=== PATIENT | female | born 1950 ===

== ENCOUNTER 2024-05-23 13:34 | Outpatient (AMB) | payer MEDICARE, OTHER, SELFPAY ==
[2024-05-23 13:31] VITALS: BP 124/58; PULSE 64; O2SAT 98; BMI 25.9
--- NOTE | 2024-05-23 13:31 | A.OFFVIS_ITS ---
Vital Signs 05/23/24 13:31 Height 5 ft 1 in Weight 137 lb 2.04 oz BMI 25.9 BP 124/58 L Blood Pressure Location Lt brachial Position Sitting Pulse 64 Pulse Source Pulse Oximeter Pulse Oximetry (%) 98 Oxygen Delivery Method Room Air Intake Visit Reasons: osteoporosis/Prolia injection/CM APT Intake Note: Patient presents for osteoporosis and Prolia injection follow up. Allergies No Known Allergies Allergy (Verified 05/23/24 13:36) HPI HPI osteoporosis/Prolia injection/CM APT: Details: She continues to experience back pain. She did not have any benefit with PT. she reports that she would normally get Prolia in April or May. She co ntinues to take calcium vitamin-D supplement. No new fractures. Review of Systems Const All systems reviewed & are unremarkable except as noted in HPI and below Physical Exam Vital Signs: Last Vital Signs Pulse 64 05/23/24 13:31 BP 124/58 L 05/23/24 13:31 Pulse Ox 98 05/23/24 13:31 Oxygen Delivery Method Room Air 05/23/24 13:31 BMI result Body Mass Index 25.9 Const Other: General: Comfortable, responsive and alert. Skin: No lesions seen MSK: No synovitis. Kyphoscoliosis present. Ambulates without assistance. Slow ambulation. Assessment & Plan Assessment & Plan (1) Osteoporosis: Comment: On Prolia. Code(s): M81.0 - Age-related osteoporosis without current pathological fracture Category: Medical Qualifiers: Osteoporosis type: age-related Presence of current pathological fracture: unspecified Qualified Code(s): M81.0 - Age-related osteoporosis without current pathological fracture Plan: Labs for drug monitoring ordered We will process PA for Prolia and schedule patient would nurse visit at [facility] Rheumatology Department [facility] including bone densities. She will be due to repeat bone density next year Continue calcium and vitamin-D supplementation Return to clinic in 3 months (2) Other nursing home (current) drug therapy: Code(s): Z79.899 - Other nursing home (current) drug therapy Category: Medical Plan: See above Orders: Orders Vitamin D 25-OH Total Today M81.0 - Age-related osteoporosis without current pathological fracture Albumin Level Today M81.0 - Age-related osteoporosis without current pathological fracture Calcium Today M81.0 - Age-related osteoporosis without current pathological fracture Creatinine Today M81.0 - Age-related osteoporosis without current pathological fracture Coding Level of Care Code Est Pt Level 3 (21280) Complex EM visit Add On G2211 Diagnoses Age related osteoporosis, unspecified pathological fracture presence M81.0 Osteoporosis type: age-related Presence of current pathological fracture: unspecified Other terminal clerk (current) drug therapy Z79.899
== END 2024-05-23 14:26 | disposition home or self-care (01) ==
LOC: HO.RHES 13:34
PROVIDERS: Visit Provider Internal Medicine Rheumatology
DX: M81.0 Age-related osteoporosis without current pathological fracture (principal); Z79.899 Other long term (current) drug therapy
CPT/HCPCS: 99213; G2211

== ENCOUNTER → 2024-05-23 13:34 | Outpatient (BNVA) | payer MEDICARE, OTHER, SELFPAY | PROVIDERS: Visit Provider Internal Medicine Rheumatology | DX: M81.0 Age-related osteoporosis without current pathological fracture (principal); Z79.899 Other long term (current) drug therapy | CPT/HCPCS: 99212 ==

== ENCOUNTER 2024-05-24 09:08 | Outpatient (REF) | payer MEDICARE, SELFPAY ==
[2024-05-24 13:55] LABS: Albumin Level 4.1 g/dL (3.5-5.0); Calcium 9.4 mg/dL (8.4-10.2); Estimated Glomerular Filt Rate > 60
[2024-05-24 14:14] LABS: Vitamin D 25-OH Total 39.2 ng/mL (>30)
== END 2024-05-24 09:09 | disposition home or self-care (01) ==
LOC: HO.HMGCLDS 09:08
PROVIDERS: Visit Provider Internal Medicine Rheumatology
DX: M81.0 Age-related osteoporosis without current pathological fracture (principal)
CPT/HCPCS: 36415; 82040; 82306; 82310; 82565

== ENCOUNTER 2024-07-18 15:06 | Outpatient (REF) | payer OTHER, SELFPAY ==
--- OUTSIDE RECORDS SUMMARY | 2024-07-18 15:10 | XMS_ITS | Clinical Summary ---
Author Organization [facility] [address] [facility] Address [address] [place] [address] Phone Care Team Providers Care Management Consulting Name Role Phone Yogesh Mckeon MD Primary Care Provider [phone] Allergies Active Allergy Reactions Criticality Noted Date Comments Latex 07/07/2024 Medications Medication Sig Dispensed Refills Start Date End Date Status aspirin 81 mg chewable tablet aspirin 81 MG tablet Take 81 mg by mouth daily Active pen needle, diabetic (BD ULTRA-FINE ORIG PEN NEEDLE MISC) B-D ULTRAFINE III SHORT PEN 31G X 8 MM Misc 09/13/2017 Active cephalexin (KEFLEX) 500 mg capsule 10/08/2017 Active cetirizine (ZyrTEC) 10 mg capsule Take 1 Tab by mouth daily. Active cholecalciferol (VITAMIN D-3) 250 mcg (10,000 unit) capsule 12/12/2017 Active denosumab (Prolia) 60 mg/mL syringe syringe Inject 60 mg into the skin Once. 12/21/2017 Active ergocalciferol (VITAMIN D-2) 1,250 mcg (50,000 unit) capsule Take 50,000 Units by mouth once a week. Active esomeprazole (NexIUM) [address] capsule Take 40 mg by mouth every morning (before breakfast). Active fluconazole (DIFLUCAN) 150 mg tablet 10/08/2017 Active insulin glargine (LANTUS) 100 unit/mL injection Inject 10 Units into the skin daily. Active lisinopriL (PRINIVIL,ZESTRIL ) 2.5 mg tablet Take 2.5 mg by mouth daily. Active metFORMIN (GLUCOPHAGE) 1,000 mg tablet Take 1,000 mg by mouth 2 times daily (with meals). Active NIFEdipine (ADALAT CC) 30 mg 24 hr tablet Take 30 mg by mouth daily. Active pimecrolimus (ELIDEL) 1 % cream Apply topically 2 times daily. Active prednisoLONE acetate (PRED FORTE) 1 % ophthalmic suspension 11/17/2017 Active simvastatin (ZOCOR) 40 mg tablet Take 40 mg by mouth at bedtime. Active SITagliptin phosphate (Januvia) 100 mg tablet Take 100 mg by mouth daily. Active triamcinolone (KENALOG) 0.1 % cream Apply topically 2 times daily. Active budesonide DR (ENTOCORT EC) 3 mg 24 hr capsuleIndication s:Collagenous colitis Take 3 capsules (9 mg total) by mouth 1 (one) time each day in the morning. 90 each 11 07/07/2024 07/07/[address] (ENTOCORT EC) 3 mg 24 hr capsuleIndication s:Collagenous colitis Take 3 capsules (9 mg total) by mouth 1 (one) time each day in the morning. 90 each 07/07/2024 07/07/2024 Discontinued (Reorder) Encounters Date Type Department Care Team Description 07/07/2024 8:20 AM EST Office Visit Gastroenterology - [address] [phone] Lottie Martinez, [place] Collagenous colitis (Primary Dx) 06/29/2024 Telephone Gastroenterology - [address] [phone] Marlon Guzman MD from Last 3 Months Social History Tobacco Use Types Packs/Day Years Used Date Smoking Tobacco: Never Assessed Sex and Gender Information Value Date Recorded Sex Assigned at Not on file Gender Identity Not on file Sexual Orientation Not on file Job Start Date Occupation Industry Not on file Not on file Not on file Last Filed Vital Signs Vital Sign Reading Time Taken Comments Blood Pressure - - Pulse - - Temperature - - Respiratory Rate - - Oxygen Saturation - - Inhaled Oxygen Concentration - - Weight 61.4 kg (135 lb 6.4 oz) 07/07/2024 8:20 A M EST Height 154.9 cm (5' 1 ) 07/07/2024 8:20 AM EST Body Mass Index 25.58 07/07/2024 8:20 AM EST Plan of Treatment Upcoming Encounters Date Type Department Care Team ([facility] st Contact Info) Description 09/01/2024 9:20 AM EDT Office Visit Gastroenterology - 299 [address] [place] [phone] Lottie Martinez NP [address] [facility] [address] [place] [address] Health Maintenance Due Date Last Done Comments Breast Cancer Screening 1950 Diabetes: Annual GFR (Glomerular Filtration Rate) 1952 Diabetes: Annual Foot Exam 1962 Diabetes: Annual Retina Eye Exam 1962 RSV Immunization Patients 60+ Years Old (1 - Risk 60-74 years 1-dose series) 2012 COVID-19 Vaccine ( season) 2024 03/19/2022, 04/25/2021, 08/24/2020, Additional history exists Cholesterol Screening (Lipid Panel) 06/30/2024 Colorectal Cancer Screening: Colonoscopy 06/30/2024 Depression Screening 06/30/2024 Falls Risk Assessment 06/30/2024 Hepatitis C Screening 06/30/2024 Medicare Annual Wellness Visit 06/30/2024 Osteoporosis Screening (Bone Density Screening) 06/30/2024 Social Influencers of Health Screening 06/30/2024 Diabetes: Annual Urine Albumin-Creatinine Ratio (uACR) 07/08/2024 Diabetes: Blood Sugar Control Test (HGBA1C) 07/08/2024 Hypertension/CHF/CAD Annual BMP Blood Test 07/08/2024 DTaP,Tdap,and Td Vaccines (3 - Td or Tdap) 10/16/2024 10/16/2014, 05/11/2007 Pneumococcal Vaccine: 65+ Years Completed 07/20/2019, 03/28/2018, 03/17/2011 Zoster Vaccines Completed 07/18/2020, 03/25/2020 Influenza Vaccine Completed 04/11/2024, , 08/12/2022, Additional history exists HIB Vaccines Aged Out No longer eligi ble based on patient's age to complete this topic HPV Vaccines Aged Out No longer eligi ble based on patient's age to complete this topic Hepatitis A Vaccines Aged Out No long er eligible based on patient's age to complete this topic Hepatitis B Vaccines Aged Out No long er eligible based on patient's age to complete this topic IPV Vaccines Aged Out No longer eligi ble based on patient's age to complete this topic MMR Vaccines Aged Out No longer eligi ble based on patient's age to complete this topic Meningococcal ACWY Vaccine Aged Out N o longer eligible based on patient's age to complete this topic RSV Immunization Patients Under 20 months Aged Out No longer eligible based on patient's age to complete this topic Varicella Vaccines Aged Out No longer eligible based on patient's age to complete this topic Care Teams Management Consulting Relationship Specialty Start Date End Date Yogesh Mckeon MD [address] [place] [phone] PCP - General Internal Medicine 06/29/24
--- OUTSIDE RECORDS SUMMARY | 2024-07-18 15:10 | XMS_ITS | Continuity of Care Document ---
Author Organization [place] - [facility], JORGE [facility] Address [address] [place] [address] Care Team Providers Care Brazing Machine Tender Name Role Phone YANNA JACINTO Primary Care Provider Assessment Encounter Date Assessment Date Assessment LastModified by Organization Details LastModified Time 07/03/2024 07/03/2024 Assessment: Pt with limited right ankle ROM. Continues to have ttp and pain with gentle manual stretching. Abnormal gait pattern demonstrating a decrease in step length. Plan: Continue Poc as outlined [email or web address] Not available 07/02/2024 16:04:32 Plan of Treatment Reminders Order Date Submit Date Provider Last Modified By Organization Details Last Modified Time Details Appointments PT FOLLOW -UP 025 11:30AM Dio Pérez PTA Not available Not available Not available PT FOLLOW -UP 025 10:30AM Dio Pérez PTA Not available Not available Not available Lab None record ed. Referral None record ed. Procedures None record ed. Surgeries None record ed. Imaging None record ed. Medication Orders None record ed. Patient TargetsNo targets recorded. Patient InstructionsNo instructions recorded. Reason for Referral None Reported. Results Created Date Observation Date Name Description Value Unit Range Abnormal Flag Note LastModifiedBy Organization Detail LastModifiedTime 06/13/20 24 06/05/2024 XR, ankle , 3 or more view No observ ation record ed. BARCODE Not Available 2023 14:44:41 Result Notes None recorded. Problems Name Problem SNOMED Code Status Onset Date Resolution Date Notes Provider Name and Address Organization Details Recorded Time Sprain of right ankle [id number] Active 2023 Yobani Ashley PA-C [address], [place], [address] , [facility] 4 08:44:32 Problem Notes None recorded. Procedures Surgical History Date Name Laterality Status Provider Name and Address Organization Details Recorded Time 5 18944 Therapeutic Exercise (1:1) active Dio Pérez PTA [address], [place], [address], [facility] 07/18/2024 09:03:59 5 47156: Manual therapy active Dio Pérez PTA [address], [place], [address], [facility] 07/18/2024 09:03:59 5 82447 Therapeutic Exercise (1:1) completed Dio Pérez USABILITY ARCHITECT [address], [place], [address], [facility] 07/12/2024 18:59:19 5 22440: Manual therapy completed Dio Pérez PTA [address], [place], [address], [facility] 07/12/2024 18:59:19 5 72028 Therapeutic Exercise (1:1) completed Dio Pérez PTA [address], [place], [address], [facility] 07/11/2024 10:05:52 5 12484: Manual therapy completed Dio Pérez PTA [address], [place], [address], [facility] 07/10/2024 16:33:20 5 95571 Therapeutic Exercise (1:1) completed Dio Pérez PTA [address], [place], [address], [facility] 07/04/2024 10:09:04 5 71071: Manual therapy completed Dio Pérez USABILITY ARCHITECT [address], [place], [address], [facility] 07/04/2024 10:09:04 5 88682 Therapeutic Exercise (1:1) completed Jayden Villafuerte, PT [address], [place], [address], [facility] 07/02/2024 16:04:38 5 71794: Hot or Cold Pack completed Jayden Villafuerte, PT [address], [place], [address], [facility] 07/02/2024 16:04:38 5 33393: Manual therapy completed Jayden Villafuerte, PT [address], [place], [address], [facility] 07/03/2024 13:48:11 5 25850 Therapeutic Exercise (1:1) completed Dio Pérez, USABILITY ARCHITECT [address], [place], [address], [facility] 06/28/2024 10:47:30 5 33642: Hot or Cold Pack completed Dio Pérez, USABILITY ARCHITECT [address], [place], [address], [facility] 06/28/2024 10:47:30 5 17340: Manual therapy completed Dio Pérez, USABILITY ARCHITECT [address], [place], [address], [facility] 06/28/2024 10:47:30 5 84442 Therapeutic Exercise (1:1) completed Dio Pérez, USABILITY ARCHITECT [address], [place], [address], [facility] 06/23/2024 16:41:30 5 08847: Hot or Cold Pack completed Dio Pérez, USABILITY ARCHITECT [address], [place], [address], [facility] 06/23/2024 16:41:29 5 92341: Manual therapy completed Dio Pérez, USABILITY ARCHITECT [address], [place], [address], [facility] 06/26/2024 11:45:59 5 20007 Therapeutic Exercise (1:1) completed Jayden Villafuerte, PT [address], [place], [address], [facility] 06/21/2024 11:47:03 5 68276: Hot or Cold Pack completed Jayden Villafuerte, PT [address], [place], [address], [facility] 06/21/2024 11:51:27 5 56372 Therapeutic Exercise (1:1) completed Jayden Villafuerte, PT [address], [place], [address], [facility] 06/18/2024 18:52:14 5 08332: Low complexity PT Eval completed Jayden Villafuerte, PT [address], [place], [address], [facility] 06/18/2024 18:53:15 Imaging Results None recorded. Procedure Notes None recorded. Medical Equipment None Reported. Allergies No known drug allergies Medications Name Sig Start Date Stop Date Status Note LastModified by Organization Details LastModified Time cilostazol 50 mg tablet TAKE 1 TABLET BY MOUTH TWICE A DAY active Not Available Not Available No t Available meloxicam 15 mg tablet TAKE 1 TABLET BY MOUTH EVERY DAY NEEDED active Not Available Not Available No t Available nifedipine ER 30 mg tablet,exten ded release TAKE 1 TABLET BY MOUTH EVERY DAY active Not Available Not Available No t Available omeprazole 40 mg capsule,wes yed release TAKE 1 CAPSULE BY MOUTH EVERY DAY active Not Available Not Available No t Available simvastatin 40 mg tablet TAKE 1 TABLET BY MOUTH EVERYDAY AT BEDTIME active Not Available Not Available No t Available prednisolone acetate 1 % eye drops,suspen elias INSTILL 1 DROP INTO BOTH EYES EVERY DAY active Not Available Not Available No t Available magnesium oxide 400 mg (241.3 mg magnesium) tablet TAKE 1 TABLET BY MOUTH EVERY DAY active Not Available Not Available No t Available lorazepam 0.5 mg tablet TAKE 1 TABLET BY MOUTH DAILY AT BEDTIME NEEDED FOR ANXIETY FOR 90 DAYS active Not Available Not Available Not Available benzonatate 100 mg capsule TAKE 1 CAPSULE BY MOUTH 3 TIMES A DAY FOR 10 DAYS active Not Available Not Available Not Available metformin 1,000 mg tablet TAKE 1 TABLET BY MOUTH TWICE A DAY active Not Available Not Available No t Available gabapentin 100 mg capsule TAKE 2 CAPSULES BY MOUTH 2 TIMES A DAY active Not Available Not Available Not Available lorazepam 1 mg tablet TAKE 1/2 TABLET BY MOUTH ONCE DAILY AT BEDTIME NEEDED FOR ANXIETY active Not Available Not Available No t Available budesonide DR - ER 3 mg capsule,wes yed,extended release TAKE 3 CAPSULES (9 MG TOTAL) BY MOUTH EVERY DAY IN THE MORNING active Not Available Not Available No t Available albuterol sulfate HFA 90 mcg/actuatio n aerosol inhaler INHALE 1 TO 2 PUFFS BY MOUTH EVERY 4 TO 6 HOURS NEEDED active Not Available Not Available No t Available Vitamin D3 25 mcg (1,000 unit) tablet TAKE 1 TABLET DAILY active Not Available Not Available No t Available BD Ultra-Fine Mini Pen Needle 31 gauge x 3/16 USE ONE NEEDLE 4 TIMES PER DAY TO DOSE INSULIN, OR DIRECTED, DX=E11.9 active Not Available Not Available No t Available BD Ultra-Fine Short Pen Needle 31 gauge x 5/16 USE TO ADMINISTER INSULIN DAILY active Not Available Not Available No t Available ferrous gluconate 324 mg (38 mg iron) tablet TAKE 1 TABLET BY MOUTH TWICE A DAY active Not Available Not Available No t Available FreeStyle Lite Strips USE TO TEST BLOOD SUGAR TWICE DAILY DX: DM TYPE II (E11.9) active Not Available Not Available N ot Available Lantus Solostar U-100 Insulin 100 unit/mL (3 mL) subcutaneous pen INJECT 16 UNITS SUBCUTANEOU SLY EVERY DAY active Not Available Not Available No t Available Trelegy Ellipta 100 mcg-62.5 mcg-25 mcg powder for inhalation INHALE 1 PUFF EVERY DAY . RINSE MOUTH AFTER USE active Not Available Not Available No t Available FreeStyle Rahul 2 Sensor kit USE WITH FSL 2 READER TO MONITOR BLOOD GLUCOSE CHANGE EVERY 14 DAYS DX E11.9 30DAY SUPPLY active Not Available Not Available No t Available Vitals None Recorded Social History None recorded. Functional Status None recorded. Mental Status None recorded. Family History Nothing Reported. Medical History No medical history recorded. Gynecological HistoryNo gynecological history recorded. Obstetrics History GPAL:G 0 P 0 0 0 0 Past Encounters Encounter ID Performer Location Encounter Start Date Encounter Closed Date Diagnosis/Indication Diagnosis SNOMED-CT Code Diagnosis ICD10 Code Diagnosis Note [id number] Yobani Ashley PA-C [place] [address] [place] [address] 06/13/2024 08:29:17 06/29/2024 13:36:48 Sprain of right ankle [id number] S93.491A [id number] Jayden Villafuerte, PT [facility] [address] [place] [address] 06/19/2024 14:58:04 06/20/2024 08:13:04 Sprain of right ankle [id number] S93.401D [id number] Jayden Villafuerte, PT [facility] [address] [place] [address] 06/21/2024 10:13:55 06/21/2024 14:49:07 Sprain of right ankle [id number] S93.401D [id number] Jayden Villafuerte, PT [facility] [address] [place] [address] 06/26/2024 10:33:44 06/26/2024 11:46:28 Sprain of right ankle [id number] S93.401D [id number] Jayden Villafuerte, PT [facility] [address] [place] [address] 06/28/2024 10:45:09 06/28/2024 11:51:33 Sprain of right ankle [id number] S93.401D [id number] Jayden Villafuerte, PT [facility] [address] [place] [address] 07/03/2024 13:08:03 07/03/2024 16:20:58 Sprain of right ankle [id number] S93.401D Health Concerns Section Related Observation LastModified by Organization Detai ls LastModified Time None Recorded Concern Status LastModified by Organization Details LastModified Time None Recorded Payers Encounter Date Sequence Insurance Name Policy Number Policy Maza Covered Member ID Maza Member ID Guarantor Name 07/03/2024 1 [facility] - MEDICARE ADVANTAGE PLAN (MEDICARE REPLACEMENT HMO) [id number] Patrizia Smith [id number] Patrizia Smith Notes Date Note Type Note Provider Name and Address Organization Details Recorded Time 07/03/2024 text/html Patient states 7/10 pain right ankle Jayden Villafurete, PT [address] [facility] [address], [place], [address], [facility] 07/03/2024 15:05:36 OBGyn Episode No OBEpisode recorded.
--- OUTSIDE RECORDS SUMMARY | 2024-07-18 15:10 | XMS_ITS | Continuity of Care Document ---
Author Organization [place] - [facility], JORGE Salgado PT Address [address] [place] [address] Care Team Providers Care Ceramic Tile Mechanic Name Role Phone YANNA JACINTO Primary Care Provider Assessment Encounter Date Assessment Date Assessment LastModified by Organization Details LastModified Time 06/21/2024 06/21/2024 Assessment: pt unable to perform ther ex with ankle discomfort still has antalgic gait Plan: Continue to decrease pain, improve mobility, facilitate normalized gait mechanics, and strengthen/st abilize ankle joint for functional ADL's. [email or web address] Not available 06/21/2024 11:50:50 Plan of Treatment Reminders Order Date Submit [...] Details Recorded Time Sprain of right ankle [id number] Active 2023 Yobani Ashley PA-C [address], [place], [address] , [facility] 4 08:44:32 Problem Notes None recorded. Procedures Surgical History Date Name Laterality Status Provider Name and Address Organization Details Recorded Time 95525 Therapeutic Exercise (1:1) active Dio Pérez, PURCHASING BUYER [address], [place], [address], [facility] 07/18/2024 09:03:59 5 68069: Manual therapy active Dio Pérez PURCHASING BUYER [address], [place], [address], [facility] 07/18/2024 09:03:59 5 04974 Therapeutic Exercise (1:1) completed Dio Pérez PURCHASING BUYER [address], [place], [address], [facility] 07/12/2024 18:59:19 5 68928: Manual therapy completed Dio Pérez PURCHASING BUYER [address], [place], [address], [facility] 07/12/2024 18:59:19 5 88258 Therapeutic Exercise (1:1) completed Dio Pérez PURCHASING BUYER [address], [place], [address], [facility] 07/11/2024 10:05:52 5 06705: Manual therapy completed Dio Pérez PURCHASING BUYER [address], [place], [address], [facility] 07/10/2024 16:33:20 5 39285 Therapeutic Exercise (1:1) completed Dio Pérez PURCHASING BUYER [address], [place], [address], [facility] 07/04/2024 10:09:04 5 75890: Manual therapy completed Dio Pérez PURCHASING BUYER [address], [place], [address], [facility] 07/04/2024 10:09:04 5 70509 Therapeutic Exercise (1:1) completed Jayden Villafuerte, PT [address], [place], [address], [facility] 07/02/2024 16:04:38 5 27038: Hot or Cold Pack completed Jayden Villafuerte, PT [address], [place], [address], [facility] 07/02/2024 16:04:38 5 96990: Manual therapy completed Jayden Villafuerte, PT [address], [place], [address], [facility] 07/03/2024 13:48:11 5 73766 Therapeutic Exercise (1:1) completed Dio Pérez, PURCHASING BUYER [address], [place], [address], [facility] 06/28/2024 10:47:30 5 59645: Hot or Cold Pack completed Dio Pérez, PURCHASING BUYER [address], [place], [address], [facility] 06/28/2024 10:47:30 5 44648: Manual therapy completed Dio Pérez, PURCHASING BUYER [address], [place], [address], [facility] 06/28/2024 10:47:30 5 92734 Therapeutic Exercise (1:1) completed Dio Pérez, PURCHASING BUYER [address], [place], [address], [facility] 06/23/2024 16:41:30 5 31825: Hot or Cold Pack completed Dio Pérez, PURCHASING BUYER [address], [place], [address], [facility] 06/23/2024 16:41:29 5 23498: Manual therapy completed Dio Pérez, PURCHASING BUYER [address], [place], [address], [facility] 06/26/2024 11:45:59 5 00413 Therapeutic Exercise (1:1) completed Jayden Villafuerte, PT [address], [place], [address], [facility] 06/21/2024 11:47:03 5 78181: Hot or Cold Pack completed Jayden Villafuerte, PT [address], [place], [address], [facility] 06/21/2024 11:51:27 5 93222 Therapeutic Exercise (1:1) completed Jayden Villafuerte, PT [address], [place], [address], [facility] 06/18/2024 18:52:14 5 08216: Low complexity PT Eval completed Jayden Villafuerte, PT [address], [place], [address], [facility] 06/18/2024 18:53:15 Imaging Results [...] SNOMED-CT Code Diagnosis ICD10 Code Diagnosis Note [id number] Yobani Ashley PA-C [place] [address] [place] [address] 06/13/2024 08:29:17 06/29/2024 13:36:48 Sprain of right ankle [id number] S93.491A [id number] Jayden Villafuerte, PT [facility] - [facility] [address] [place] [address] 06/19/2024 14:58:04 06/20/2024 08:13:04 Sprain of right ankle 5916895306 [id number] S93.401D [id number] Jayden Villafuerte PT [facility] - [facility] [address] [place] [address] 06/21/2024 10:13:55 06/21/2024 14:49:07 Sprain of right ankle [id number] S93.401D Health Concerns Section Related Observation LastModified by Organization Detai ls LastModified Time None Recorded Concern Status LastModified by Organization Details LastModified Time None Recorded Payers Encounter Date Sequence Insurance Name Policy Number Policy Maza Covered Member ID Maza Member ID Guarantor Name 06/21/2024 1 [employer] - MEDICARE ADVANTAGE PLAN (MEDICARE REPLACEMENT HMO) [id number] Patrizia Smith [id number] Patrizia Smtih Notes Date Note Type Note Provider Name and Address Organization Details Recorded Time 06/21/2024 text/html Patient states 7/10 pain right ankle Jayden Villafuerte, PT [address], [place], [address], [facility] 06/21/2024 11:51:39 OBGyn Episode No OBEpisode recorded.
--- OUTSIDE RECORDS SUMMARY | 2024-07-18 15:10 | XMS_ITS | Encounter Summary ---
Author Organization [facility] Address [address] [place] [address] Care Team Providers Care Helmet Hat Sweatband Puncher Name Role Phone Yogesh Mckeon MD Primary Care Provider [phone] Encounter Details Date Type Department Care Team (Late st Contact Info) Description 06/29/2024 Telephone Gastroenterology - [address] [facility] [address] [place] [phone] Marlon Guzman MD [address] [facility] [address] [id number] Social History Tobacco Use Types Packs/Day Years Used Date Smoking Tobacco: Never Assessed Sex and Gender Information Value Date Recorded Sex Assigned at Not on file Gender Identity Not on file Sexual Orientation Not on file Job Start Date Occupation Industry Not on file Not on file Not on file documented as of this encounter Progress Notes * Christin Valverde - 06/29/2024 3:35 PM EST 08 PT, WOULD LIKE CALL BACK, STATES SHE'S HAD UNCONTROLLABLE DIARRHEA FOR OVER A MONTH documented in this encounter Plan of Treatment Upcoming Encounters Date Type Department Care Team (Late st Contact Info) Description 09/01/2024 9:20 AM EDT Office Visit Gastroenterology - [address] [place] [phone] Lottie Martinez, METAL HARDENER [address] [facility] [address] [place] [phone] documented as of this encounter Visit Diagnoses Not on filedocumented in this encounter Care Teams Helmet Hat Sweatband Puncher Relationship Specialty Start Date End Date Yogesh Mckeon MD [address] [place] [address] [place] [address] PCP - General Internal Medicine 06/29/24 documented as of this encounter
--- OUTSIDE RECORDS SUMMARY | 2024-07-18 15:11 | XMS_ITS | Continuity of Care Document ---
Author Organization [place] - [facility], JORGE Salgado PT Address [address] [place] [address] Care Team Providers Care Primary Counselor Name Role Phone YANNA JACINTO Primary Care Provider Assessment Encounter Date Assessment Date Assessment LastModified by Organization Details LastModified Time 07/11/2024 07/11/2024 Assessment: At this time the patient continues to have high level pain symptoms. Her ROM is limited in all planes. Functionally she is challenged with prolonged standing and walking. Pt encouraged to make a f/u with the DR secondary to lack of decreasing pain. Plan: Continue Poc as outlined [email or web address] Not available 07/11/2024 10:25:44 Plan of Treatment Reminders Order Date Submit [...] Details Recorded Time Sprain of right ankle [id number] Active 2023 Yobani Ashley PA-C [address], [place], [address], [facility] 4 08:44:32 Problem Notes None recorded. Procedures Surgical History Date Name Laterality Status Provider Name and Address Organization Details Recorded Time 5 49031 Therapeutic Exercise (1:1) active Dio Pérez PTA [address], [place], [address], [facility] 07/18/2024 09:03:59 5 53588: Manual therapy active Dio Pérez REHANGER [address], [place], [address], [facility] 07/18/2024 09:03:59 5 74667 Therapeutic Exercise (1:1) completed Dio Pérez, REHANGER [address], [place], [address], [facility] 07/12/2024 18:59:19 5 93535: Manual therapy completed Dio Pérez PTA [address], [place], [address], [facility] 07/12/2024 18:59:19 5 95353 Therapeutic Exercise (1:1) completed Dio Pérez PTA [address], [place], [address], [facility] 07/11/2024 10:05:52 5 50065: Manual therapy completed Dio Pérez PTA [address], [place], [address], [facility] 07/10/2024 16:33:20 5 95867 Therapeutic Exercise (1:1) completed Dio Pérez PTA [address], [place], [address], [facility] 07/04/2024 10:09:04 5 40186: Manual therapy completed Dio Pérez REHANGER [address], [place], [address], [facility] 07/04/2024 10:09:04 5 27254 Therapeutic Exercise (1:1) completed Jayden Villafuerte, PT [address], [place], [address], [facility] 07/02/2024 16:04:38 5 72780: Hot or Cold Pack completed Jayden Villafuerte, PT [address], [place], [address], [facility] 07/02/2024 16:04:38 5 53126: Manual therapy completed Jayden Villafuerte, PT [address], [place], [address], [facility] 07/03/2024 13:48:11 5 57586 Therapeutic Exercise (1:1) completed Dio Pérez, REHANGER [address], [place], [address], [facility] 06/28/2024 10:47:30 5 03150: Hot or Cold Pack completed Dio Pérez REHANGER [address], [place], [address], [facility] 06/28/2024 10:47:30 5 09387: Manual therapy completed Dio Pérez, REHANGER [address], [place], [address], [facility] 06/28/2024 10:47:30 5 95571 Therapeutic Exercise (1:1) completed Dio Pérez, REHANGER [address], [place], [address], [facility] 06/23/2024 16:41:30 5 60765: Hot or Cold Pack completed Dio Pérez, REHANGER [address], [place], [address], [facility] 06/23/2024 16:41:29 5 42649: Manual therapy completed Dio Pérez, REHANGER [address], [place], [address], [facility] 06/26/2024 11:45:59 5 46021 Therapeutic Exercise (1:1) completed Jayden Villafuerte, PT [address], [place], [address], [facility] 06/21/2024 11:47:03 5 23675: Hot or Cold Pack completed Jayden Villafuerte, PT [address], [place], [address], [facility] 06/21/2024 11:51:27 5 21672 Therapeutic Exercise (1:1) completed Jayden Villafuerte, PT [address], [place], [address], [facility] 06/18/2024 18:52:14 5 96890: Low complexity PT Eval completed Jayden Villafuerte, PT [address], [place], [address], [facility] 06/18/2024 18:53:15 Imaging Results None recorded. Procedure [...] SNOMED-CT Code Diagnosis ICD10 Code Diagnosis Note [id number] Yobani Ashley PA-C [place] [address] [place] [address] 06/13/2024 08:29:17 06/29/2024 13:36:48 Sprain of right ankle [id number] S93.491A [id number] Jayden Villafuerte, PT [facility] [address] [place] [address] 06/19/2024 14:58:04 06/20/2024 08:13:04 Sprain of right ankle [id number] [id number] S93.401D [id number] Jayden Villafuerte, PT [facility] [address] [place] [address] 06/21/2024 10:13:55 06/21/2024 14:49:07 Sprain of right ankle [id number] S93.401D [id number] Jayden Villafuerte, PT [facility] [address] [place] [address] 06/26/2024 10:33:44 06/26/2024 11:46:28 Sprain of right ankle [id number] S93.401D [id number] Jayden Villafuerte, PT [facility] [address] [place] [address] 06/28/2024 10:45:09 06/28/2024 11:51:33 Sprain of right ankle [id number] S93.401D [id number] Jayden Villafuerte, PT [facility] [address] [place] [address] 07/03/2024 13:08:03 07/03/2024 16:20:58 Sprain of right ankle [id number] [id number] S93.401D [id number] Jayden Villafuerte, PT [facility] [address] [place] [address] 07/05/2024 10:09:18 07/05/2024 11:37:15 Sprain of right ankle [id number] S93.401D [id number] Jayden Villafuerte, PT [facility] [address] [place] [address] 07/11/2024 08:46:43 07/11/2024 10:27:06 Sprain of right ankle 5812746292 [id number] S93.401D Health Concerns Section Related Observation LastModified by Organization Detai ls LastModified Time None Recorded Concern Status LastModified by Organization Details LastModified Time None Recorded Payers Encounter Date Sequence Insurance Name Policy Number Policy Maza Covered Member ID Maza Member ID Guarantor Name 07/11/2024 1 [facility] - MEDICARE ADVANTAGE PLAN (MEDICARE REPLACEMENT HMO) [id number] Patrizia Smith [id number] Patrizia Smith Notes Date Note Type Note Provider Name and Address Organization Details Recorded Time 07/11/2024 text/html Patient states 8/10 pain right ankle before therapy. Pt state she is having a hard time standing and walking. I cant drive anywhere, I have to have my drive. She reports she was given a brace but it hurts. Dio Pérez, REHANGER [address], [place], [address], [facility] 07/11/2024 10:26:57 OBGyn Episode No OBEpisode recorded.
--- OUTSIDE RECORDS SUMMARY | 2024-07-18 15:11 | XMS_ITS | Encounter Summary ---
Author Organization [facility] Address [address] [place] [address] Care Team Providers Care Supervisor Brake Repair Name Role Phone Yogesh Mckeon MD Primary Care Provider [phone] Encounter Details Date Type Department Care Team (Late st Contact Info) Description 07/07/2024 8:20 AM EST Office Visit Gastroenterology - [address] [place] [phone] Rita Martinez, SEYMOUR [address] [place] [address] Collagenous colitis (Primary Dx) Social History Tobacco Use Types Packs/Day Years Used Date Smoking Tobacco: Never Assessed Sex and Gender Information Value Date Recorded Sex Assigned at Not on file Gender Identity Not on file Sexual Orientation Not on file Job Start Date Occupation Industry Not on file Not on file Not on file documented as of this encounter Last Filed Vital Signs Vital Sign Reading Time Taken Comments Blood Pressure - - Pulse - - Temperature - - Respiratory Rate - - Oxygen Saturation - - Inhaled Oxygen Concentration - - Weight 61.4 kg (135 lb 6.4 oz) 07/07/2024 8:20 A M EST Height 154.9 cm (5' 1 ) 07/07/2024 8:20 AM EST Body Mass Index 25.58 07/07/2024 8:20 AM EST documented in this encounter Ordered Prescriptions Prescription Sig Dispensed Refills Start Date End Da te budesonide DR (ENTOCORT EC) 3 mg 24 hr capsuleIndications:Collag enous colitis Take 3 capsules (9 mg total) by mouth 1 (one) time each day in the morning. 90 each 11 07/07/2024 07/07/[address] (ENTOCORT EC) 3 mg 24 hr capsuleIndications:Collag enous colitis Take 3 capsules (9 mg total) by mouth 1 (one) time each day in the morning. 90 each 11 07/07/2024 07/07/2024 documented in this encounter Progress Notes * Rita Martinez NP - 07/07/2024 8:20 AM ESTAddended by: RITA MARTINEZ on: 07/07/2024 10:34 AM Modules accepted: Orders * Rita Martinez NP - 07/07/2024 8:20 AM EST CHIEF COMPLAINT: Diarrhea DATE OF LAST ENDOSCOPIC PROCEDURES: 11/2021 Colonoscopy 08/2020 EGD 09/2020 Capsule HPI: Patrizia Smith is a 73 y.o. old female who was originally referred to us by Yogesh Mckeon MD now presents to the gastroenterology department today for a follow up of collagenous colitis. Ms. Smith tells me she fell at home at the end of May and hurt her leg. She is getting better and fortunately did not break any bones, however since then she has started having diarrhea again. She describes 3-4 episodes of loose, non-bloody stools daily. Mild urgency. She denies abdominal pain or weight loss. She had no upper GI concerns. She denies recent antibiotic use, travel, or change in medication. Her symptoms are consistent with he collagenous colitis. Budesonide has worked well for her in the past and our plan is to restart it now and follow her closely. ROS: GENERAL: No malaise, significant weight loss or fever HEENT: No changes in hearing or vision or swallowing problems RESPIRATORY: No cough, wheezing or shortness of breath CARDIOVASCULAR: No chest pain, leg swelling or palpitations GI: See H&P The remainder of the review of systems is reviewed and negative. PAST MEDICAL HISTORY: IDDM HTN Hyperlipidemia Asthma Collagenous colitis GERD Osteoporosis OA Granuloma annulare PAST SURGICAL HISTORY: Anlke ORIF Corneal transplant SOCIAL HISTORY: No tobacco 1 wine with dinner FAMILY HISTORY: No family history on file. ACTIVE MEDICATIONS: Lantus 16 units QHS Humalog AC meals Metformin 1000mg BID Nifedipine 30mg QD Simvastatin 40mg QD Eye gtts ALLERGIES: Allergies Allergen Reactions Latex PHYSICAL EXAM: Visit Vitals Ht 1.549 m (61 ) Wt 61.4 kg (135 lb 6.4 oz) BMI 25.58 kg/m?? BSA 1.6 m?? APPEARANCE: Alert and in no acute distress EYES: PERRLA, conjunctiva and sclera normal. HEART: RRR with normal S1 and S2, no murmurs appreciated LUNG: clear to auscultation ABDOMEN: nontender without masses NEURO: Awake, alert and oriented x 3 Assessment & Plan Collagenous colitis Restart Budesonide 9mg QD OV 6 weeks No follow-ups on file. I would like to thank Yogesh Mckeon MD for the opportunity to partake in the patient's care. Board Certified Gastroenterology [facility] W [phone] [place] [phone] [email or web address] Rita Martinez NP documented in this encounter Plan of Treatment Upcoming Encounters Date Type Department Care Team (Late st Contact Info) Description 09/01/2024 9:20 AM EDT Office Visit Gastroenterology - [address] [address] Rita Martinez NP [address] [address] documented as of this encounter Visit Diagnoses Diagnosis Collagenous colitis- Primary Other and unspecified noninfectious gastroenteritis and colitis documented in this encounter Discontinued Medications Medication Sig Discontinue Reason Start Date End Da te budesonide DR (ENTOCORT EC) 3 mg 24 hr capsuleIndications:Mita agenous colitis Take 3 capsules (9 mg total) by mouth 1 (one) time each day in the morning. Reorder 07/07/2024 07/07/2024 documented as of this encounter Care Teams Supervisor Brake Repair Relationship Specialty Start Date End Date Yogesh Mckeon MD [address] [place] [address] PCP - General Internal Medicine 06/29/24 documented as of this encounter
--- OUTSIDE RECORDS SUMMARY | 2024-07-18 15:11 | XMS_ITS | Data Portability ---
Author Organization [facility] Pain Managem ent, PAIN OFFICE Address [address] [facility] [address] [place] [address] Care Team Providers Care Field Crop Farm Worker Name Role Phone YANNA JACNITO Primary Care Provider Assessment Encounter Date Assessment Date Assessment LastModified by Organization Details LastModified Time 01/24/2020 01/24/2020 Patrizia Smith is a 69 year old woman with neck pain radiating into upper back. She has myofascial pain syndrome in her upper back. Trigger points were palpated with reproduction of her pain in the trapezius muscle and paraspinal muscle in the cervical spine. Trial of trigger point injections were discussed with her. The risks and benefits of the procedure were discussed and she wishes to proceed and an appointment has been made for the same. [email or web address] Not available 01/26/2020 14:01:09 01/29/2020 01/29/2020 Patrizia Smith is a 69 year old woman with neck pain radiating into upper back. She has myofascial pain syndrome in her upper back. Trigger points were palpated with reproduction of her pain in the trapezius muscle and paraspinal muscle in the cervical spine. She is here for a trial of trigger point injection in right trapezius muscle under ultrasound guidance . The risks and benefits of the procedure were discussed and she wishes to proceed. She can follow up in two weeks. [email or web address] Not available 01/29/2020 11:31:58 02/14/2020 02/14/2020 Patrizia Smith is a 69 year old woman with neck pain radiating into upper back. She has myofascial pain syndrome in her upper back. Trigger points were palpated with reproduction of her pain in the trapezius muscle and paraspinal muscle in the cervical spine. She is here for a trigger point injection in left trapezius muscle under ultrasound guidance . The risks and benefits of the procedure were discussed and she wishes to proceed. She can follow up in two weeks. john Not available 02/14/2020 14:49:41 Plan of Treatment Reminders Order Date Submit Date Provider Last Modified By Organization Details Last Modified Time Details Appointments None record ed. Lab None record ed. Referral None record ed. Procedures None record ed. Surgeries None record ed. Imaging None record ed. Medication Orders None record ed. Patient TargetsNo targets recorded. Patient InstructionsNo instructions recorded. Reason for Referral None Reported. Problems Name Problem SNOMED Code Status Onset Date Resolution Date Notes Provider Name and Address Organization Details Recorded Time Muscle pain 32889782 Active Tomasz george MD [address] , [address], [place], [address], [place] [facility] 0 09:53:18 Degeneration of cervical intervertebral disc 66413302 Active Tomasz george MD [address] , [address], [place], [address], [place] [facility] 0 09:53:45 Spinal stenosis in cervical region 25416067 Active Tomasz george MD [address] , [address], [place], [address], [place] [facility] 0 09:54:00 Cervical spondylosis without myelopathy 544734540 Active Tomasz george MD [address] , [address], [place], [address], [place] [facility] 0 09:54:16 Problem Notes None recorded. Procedures Surgical History Date Name Laterality Status Provider Name and Address Organization Details Recorded Time 0 Trigger Point Injections under ultrasound guidance completed Tomasz Vivas MD [address] , [address], [place], [address], [place] [facility] 02/14/2020 14:49:01 0 Trigger Point Injections under ultrasound guidance completed Tomasz Vivas MD [address] , [address], [place], [address], [place] [facility] 01/29/2020 11:29:49 Imaging Results None recorded. Procedure Notes None recorded. Medical Equipment None Reported. Allergies Allergen ID Allergen Name Allergen Category Reaction Reaction Severity Criticality Documentation Date Start Date Code Code System Note Provider Name and Address Organization Details Recorded Time 32365 latex environme nt,medica tion Not available Not available Not available 01/24/2020 97621 91 RxNorm Avtar daniel, [place] [facility] 0 09:01:31 Medications Name Sig Start Date Stop Date Status Note LastModified by Organization Details LastModified Time nifedipine ER 30 mg tablet,exte nded release 24 hr active Not Available Not Available Not Available amoxicillin 500 mg capsule TAKE 2 TO START, THEN BY MOUTH TAKE 1 CAPSULE EVERY 8 HOURS UNTIL FINISHED active Not Available Not Available No t Available methocarbam ol 500 mg tablet TAKE 1 2 TABLETS BY MOUTH AT BED TIME 01/23 completed Not Available Not Available Not Available terconazole 0.4 % vaginal cream INSERT 1 APPLICATO RFUL EVERY DAY BY VAGINAL ROUTE FOR 7 DAYS. 01/23 completed Not Available Not Available Not Available azithromyci n 250 mg tablet TAKE 2 TABLETS BY MOUTH TODAY, THEN TAKE 1 TABLET DAILY FOR 4 DAYS 01/23 completed Not Available Not Available Not Available ibuprofen 800 mg tablet TAKE 1 TABLET BY MOUTH THREE TIMES A DAY active Not Available Not Available No t Available fluconazole 150 mg tablet TAKE 1 TABLET BY MOUTH EVERY DAY NEEDED 01/23 completed Not Available Not Available Not Available prednisone 5 mg tablet PLEASE SEE ATTACHED FOR DETAILED DIRECTION S 01/23 completed Not Available Not Available Not Available sulfamethox azole 800 mg-trimetho prim 160 mg tablet TAKE 1 TABLET BY MOUTH TWICE A DAY FOR 7 DAYS 01/23 completed Not Available Not Available Not Available simvastatin 40 mg tablet 01/23 completed Not Available Not Available Not Available terbinafine HCl 250 mg tablet TAKE 1 TABLET BY MOUTH EVERY DAY 01/23 completed Not Available Not Available Not Available prednisolon e acetate 1 % eye drops,suspe nsion INSTILL 1 DROP INTO BOTH EYES DAILY 01/23 completed Not Available Not Available Not Available lorazepam 0.5 mg tablet active Not Available Not Available Not Available imiquimod 5 % topical cream packet APPLY 4 TIMES A WEEK ON AFFECTED AREAS DIRECTED. 01/23 completed Not Available Not Available Not Available tacrolimus 0.1 % topical ointment active Not Available Not Available Not Available metformin 1,000 mg tablet active Not Available Not Available Not Available ropinirole 0.5 mg tablet 1 TABLET BY MOUTH DAILY AT BEDTIME,I NSTR 1 TO 3 HOURS BEFORE BEDTIME 01/23 completed Not Available Not Available Not Available clotrimazol e-betametha sone 1 %-0.05 % topical cream APPLY TO AFFECTED AREA AND SURROUNDI NG SKIN TWICE A DAY ( MORNING AND EVENING) FOR 2 WEEKS 01/23 completed Not Available Not Available Not Available codeine 10 mg-guaifene sin 100 mg/5 mL oral liquid TAKE 10 ML BY MOUTH EVERY 4 HOURS NEEDED FOR COUGH 01/23 completed Not Available Not Available Not Available gabapentin 100 mg capsule TAKE 1 CAPSULE BY MOUTH TWICE A DAY active Not Available Not Available No t Available estradiol 0.01% (0.1 mg/gram) vaginal cream INSERT 1 G EVERY DAY BY VAGINAL ROUTE DIRECTED FOR 14 DAYS. 01/23 completed Not Available Not Available Not Available levofloxaci n 750 mg tablet TAKE 1 TABLET BY MOUTH EVERY DAY FOR 7 DAYS 01/23 completed Not Available Not Available Not Available albuterol sulfate HFA 90 mcg/actuati on aerosol inhaler INHALE 2 PUFFS EVERY 4 HOURS NEEDED WHEEZING/ SHORTNESS OF BREATHE 01/28 completed Not Available Not Available Not Available celecoxib 100 mg capsule TAKE 1 CAPSULE BY MOUTH TWICE A DAY NEEDED FOR SEVERE PAIN active Not Available Not Available No t Available fluocinonid e 0.05 % topical cream APPLY TWICE A DAY TO RIGHT WRIST AND LEFT ANTICUBIT AL active Not Available Not Available No t Available lisinopril 2.5 mg tablet 01/23 completed Not Available Not Available Not Available doxycycline hyclate 100 mg tablet TAKE 1 TABLET BY MOUTH TWICE A DAY FOR 7 DAYS 01/23 completed Not Available Not Available Not Available naproxen 500 mg tablet TAKE 1 TABLET BY MOUTH 2 TIMES A DAY NEEDED FORPAIN DO NOT TAKE WITH IBUPROFEN active Not Available Not Available No t Available amoxicillin 875 mg-potassiu m clavulanate 125 mg tablet TAKE 1 TABLET BY MOUTH EVERY 12 HOURS FOR 7 DAYS 01/23 completed Not Available Not Available Not Available oxycodone 5 mg tablet TAKE 1 TABLET BY MOUTH 2 TIMES A DAY NEEDED FOE SEVERE PAIN FOR 7 DAYS 01/23 completed Not Available Not Available Not Available Asprin Ec Low Dose 81 mg tablet,wes yed release Take 1 tablet every day by oral route. active Not Available Not Available No t Available moxifloxaci n 0.5 % eye drops INSTILL 1 DROP 3 TIMES A DAY TO LEFT EYE X 3 DAYS 01/23 completed Not Available Not Available Not Available BD Ultra-Fine Short Pen Needle 31 gauge x 5/16 TO USE DAILY WITH LANTUS PEN DX E11.9 IDDM active Not Available Not Available No t Available Januvia 100 mg tablet active Not Available Not Available No t Available Prolia active Not Available Not Availa ble Not Available OneTouch Verio test strips active Not Available Not Available Not Available EpiCeram topical emulsion, extended release APPLY TWICE DAILY TO FACE, NECK, CHEST, ABDOMEN, HANDS, AND ARMS 01/23 completed Not Available Not Available Not Available Morenakerri OlivaZev U-100 Insulin 100 unit/mL (3 mL) subcutaneou s active Not Available Not Available Not Available Vitals Date Recorded Body weight Body mass index (BMI) Body height Heart rate Oxygen saturation Oxygen saturation in Arterial blood by Pulse oximetry Systolic blood pressure Diastolic blood pressure Provider Name and Address Organization Details Last Updated DateTime 0 67662.3 8 g 24.5 kg/m2 157.48 cm 66 /min 99 % 99 % 173 mm[Hg] 74 mm[Hg] Avtar george [place] [facility] 0 09:00:31 Date Recorded Body height Heart rate Oxygen saturation Oxygen saturation in Arterial blood by Pulse oximetry Systolic blood pressure Diastolic blood pressure Provider Name and Address Organization Details Last Updated DateTime 0 157.48 cm 84 /min 97 % 97 % 102 mm[Hg] 57 mm[Hg] Bernarda Alonso [place] [facility] 0 10:58:07 Date Recorded Body height Body mass index (BMI) Body weight Heart rate Oxygen saturation Oxygen saturation in Arterial blood by Pulse oximetry Systolic blood pressure Diastolic blood pressure Provider Name and Address Organization Details Last Updated DateTime 0 157.48 cm 24.5 kg/m2 67389.3 8 g 70 /min 98 % 98 % 125 mm[Hg] 68 mm[Hg] Avtar Aragon n [place] [facility] 0 13:58:56 Social History Question Answer Notes LastModified by Organizat ion Details LastModified Time Tobacco Smoking Status Current Every Day Smoker 4-5 ciggs daily Not Available [facility] 03/29/2020 03:16:11 Do You Or Have You Ever Used E-cigarettes Or Vape? Never Used Electronic Cigarettes [id number] Information not available 03/29/2020 Live Alone Or With Others? With Others Information not available 01/24/2020 Marital Status Information not available 01/24/2020 Sex: Unknown Functional Status None recorded. Mental Status None recorded. Family History Nothing Reported. Medical History Condition Response Coronary Artery Disease N Gout N Neuropathy/Neuralgia N Kidney Stones N Hyperthyroidism N Hypothyroidism N Depression N COPD N Hepatitis C N Migrane N Diabetes Y Anxiety Disorder Y Arthritis Y Seizures/Epilepsy N Hyperlipidemia N Cancer N Stroke N Asthma N HIV/AIDS N Headache N Bipolar Disorder N GERD/Reflux N High Cholesterol N Liver Disease N Pulmonary Embolism N Irritable Bowel Syndrome N Hypertension N Osteoporosis Y Kidney Disease N Gynecological HistoryNo gynecological history recorded. Obstetrics History GPAL:G 0 P 0 0 0 0 Past Encounters Encounter ID Performer Location Encounter Start Date Encounter Closed Date Diagnosis/Indication Diagnosis SNOMED-CT Code Diagnosis ICD10 Code Diagnosis Note [id number] Tomasz Vivas MD PAIN OFFICE [address] [place] [address] 01/24/2020 08:49:01 01/26/2020 14:08:18 Degeneration of cervical intervertebral disc 50733284 M50.30 Spinal juan nosis in cervical region 39170553 M48.02 Muscle pain 01277751 M79 .18 Cervical s pondylosis without myelopathy 277678540 M47.812 [id number] Tomasz Vivas MD PAIN OFFICE [address] [place] [address] 01/29/2020 10:51:05 01/29/2020 11:42:32 Degeneration of cervical intervertebral disc 56659419 M50.30 Spinal juan nosis in cervical region 85678996 M48.02 Muscle pain 43960581 M79 .18 Cervical s pondylosis without myelopathy 627723906 M47.812 [id number] Tomasz Vivas MD PAIN OFFICE [address] [place] [address] 02/14/2020 13:44:40 02/14/2020 16:02:22 Degeneration of cervical intervertebral disc 48944498 M50.30 Spinal juan nosis in cervical region 52462026 M48.02 Muscle pain 79239213 M79 .18 Cervical s pondylosis without myelopathy 376297784 M47.812 Health Concerns Section Related Observation LastModified by Organization Detai ls LastModified Time None Recorded Concern Status LastModified by Organization Details LastModified Time None Recorded Advance Directives Directive None Recorded Payers Encounter Date Sequence Insurance Name Policy Number Policy Maza Covered Member ID Maza Member ID Guarantor Name 01/24/2020 1 [facility] [id number] 1 Patrizia Luis [id number] Patrizia Luis 01/29/2020 1 [facility] [id number] 1 Patrizia Luis [id number] Patrizia Luis 02/14/2020 1 [facility] [id number] 1 Patrizia Luis [id number] Patrizia Luis Notes Date Note Type Note Provider Name and Address Organization Details Recorded Time 01/24/2020 text/html Patrizia Smith is a 69 year old Right handed woman with complaints of neck pain radiating into right shoulder region and into both trapezius muscle regions. The pain started spontaneously and is becoming greater for the past 3 months. She describes the pain as a burning, shooting pain . Current pain level is 5/10. Turning to the right aggravates her pain. Nothing relieves the pain. Pain interferes with sleep. She has no history of bladder or bowel incontinence.She has trialed physical therapy with traction and had minimal pain benefit. She had a course of oral steroids with minimal pain benefit. She is doing a home stretching exercise program with persistent pain.MRI Cervical spine shows Mild multilevel degenerative changes of the cervical spine Small punctate focus of T2 hyperintensity in the right aspect of the cord at C4 level. This may represent myelomalacia related to prior trauma or inflammation or infection. Tomasz Vivas MD [address] , [address], [place], [address], [facility] Pain Management 01/29/2020 09:10:33 01/29/2020 text/html She is here for a right trapezius muscle trigger point injection under ultrasound guidance Tomasz Vivas MD [address] [facility] , [address], [place], [address], [facility] Pain Management 01/30/2020 08:27:47 02/14/2020 text/html She is here for a left trapezius muscle trigger point injection under ultrasound guidance Tomasz Vivas MD [address] [facility] [facility] , [address], [place], [address], [facility] Pain Management 02/15/2020 09:59:53 OBGyn Episode No OBEpisode recorded.
[2024-07-18 15:57] LABS: Albumin Level 4.1 g/dL (3.5-5.0); Calcium 9.5 mg/dL (8.4-10.2); Estimated Glomerular Filt Rate > 60
[2024-07-23 14:18] LABS: Vitamin D 25-OH, D2 <4 ng/mL; Vitamin D 25-OH, D3 26 ng/mL; Vitamin D 25-OH, Total 26 ng/mL (30-100)
== END 2024-07-18 15:07 | disposition home or self-care (01) ==
LOC: HO.LAB 15:06
PROVIDERS: Visit Provider Internal Medicine Rheumatology
DX: M81.0 Age-related osteoporosis without current pathological fracture (principal); E55.9 Vitamin D deficiency, unspecified
CPT/HCPCS: 36415; 82040; 82306; 82310; 82565

== ENCOUNTER 2024-07-28 09:57 | Outpatient (AMB) | payer OTHER, SELFPAY ==
--- NOTE | 2024-07-28 10:19 | AM.OFFVISNUR ---
Intake Visit Reasons: Osteoporosis/prolia injection Allergies No Known Allergies Allergy (Verified 05/23/24 13:36) Office Meds Prolia 60 mg/mL subcutaneous syringe Performing Provider: Saad Mac MD Performing Location: [facility] Rheumatology Administered by: Criss Turcios RN on 07/28/24 10:19 Dose Route Admin Location Dispensed Lot Number Expiration Date NDC [employer] 60 mg subcut 1 mL [id number] 01/11/27 57757-684-30 AMGEN Comments: Patient arrived with spouse for Prolia injection. She was accompanied by her spouse. Prolia 60 mg/mL injection administered to patient in the right posterior upper arm without complication. Patient tolerated the procedure well. No site reaction noted. Patient reminded to monitor for s/s of site reaction, anaphylaxis, GI/ and musculoskeletal issues. Advised that she she experience any adverse reactions to seek immediate medical attention. Assessment & Plan Assessment & Plan Orders: Orders AMB Denosumab Injection Practice Supplied Today M81.0 - Age-related osteoporosis without current pathological fracture Medications: New Prolia (denosumab) 60 mg subcut ONCE 1 mL 0RF NS M81.0 - Age-related osteoporosis without current pathological fracture Coding
--- OUTSIDE RECORDS SUMMARY | 2024-07-28 10:34 | XMS_ITS | Encounter Summary ---
Author Organization [facility] Address [address] [place] [address] Care Team Providers Care Billing Administrator Name Role Phone Yogesh Mckeon MD Primary Care Provider [phone] Encounter Details Date Type Department Care Team (Late st Contact Info) Description 07/07/2024 8:20 AM EST Office Visit Gastroenterology - [address] [place] [address] Rita Martinez, MACHINE HEEL SEAT FITTER [address] [place] [address] Collagenous colitis (Primary Dx) Social History Tobacco Use Types Packs/Day Years Used Date Smoking Tobacco: Never Assessed Comments Unknown Sex and Gender Information Value Date Recorded Sex Assigned at Not on file Legal Sex Female 3:24 PM EST Gender Identity Not on file Sexual Orientation Not on file documented as of this [...] in this encounter Ordered Prescriptions Prescription Sig Dispense Quantity Refills Last Filled Start Date End Date budesonide DR (ENTOCORT EC) 3 mg 24 hr capsuleIndications :Collagenous colitis Take 3 capsules (9 mg total) by mouth 1 (one) time each day in the morning. 90 each 11 07/07/[address] (ENTOCORT EC) 3 mg 24 hr capsuleIndications :Collagenous colitis Take 3 capsules (9 mg total) by mouth 1 (one) time each day in the morning. 90 each 11 07/07/2024 documented in this encounter Progress Notes [...] for a follow up of collagenous colitis. tells me she fell at home at [...] denies recent antibiotic use, travel, or change inmedication. Her symptoms are consistent with he collagenous colitis. Budesonide has worked well forher in the past and our plan is [...] in the patient's care. Board Certified Gastroenterology [facility] Medical [facility] W [phone] [place] [address] [email or web address] Rita Martinez NP documented in this encounter Plan of Treatment Upcoming Encounters Date Type Department Care Team (Late st Contact Info) Description 09/01/2024 9:20 AM EDT Office Visit Gastroenterology - [address] [address] Rita Martinez NP [address] [address] documented as of this encounter Visit Diagnoses [...] documented as of this encounter Care Teams Billing Administrator Relationship Specialty Start Date End Date Yogesh Mckeon MD [address] [place] [address] PCP - General Internal Medicine 06/29/24 documented as of this encounter
--- OUTSIDE RECORDS SUMMARY | 2024-07-28 10:34 | XMS_ITS | Data Portability ---
Author Organization [facility] Pain Managem ent, PAIN OFFICE Address [address] [facility] [address] [place] [address] Care Team Providers Care Airborne [employer] Systems Name Role Phone YANNA JACINTO Primary Care [...] Address Organization Details Recorded Time Muscle pain 25746029 Active Tomasz george MD [address] , [address], [facility] [place], [address], [place] [facility] 0 09:53:18 Degeneration of cervical intervertebral disc 65281498 Active Tomasz george MD [address] , [address], [place], [address], [place] [facility] 0 09:53:45 Spinal stenosis in cervical region 61164730 Active Tomasz george MD [address] , [address], [place], [address], [place] [facility] 0 09:54:00 Cervical spondylosis without myelopathy 338307481 Active Tomasz george MD [address] , [address], [place], [address], [place] [facility] 0 09:54:16 Problem Notes None recorded. Procedures Surgical History Date Name Laterality Status Provider Name and Address Organization Details Recorded Time 0 Trigger Point Injections under ultrasound guidance completed Tomasz Vivas MD [address] , [address], [place], [address], [place] [facility] 02/14/2020 14:49:01 0 Trigger Point Injections under ultrasound guidance completed Tomasz Vivas MD [address] , [address], [place], [address], [place] [facility] 01/29/2020 11:29:49 Imaging Results None recorded. Procedure Notes None recorded. Medical Equipment None Reported. Allergies Allergen ID Allergen Name Allergen Category Reaction Reaction Severity Criticality Documentation Date Start Date Code Code System Note Provider Name and Address Organization Details Recorded Time 47638 latex environme nt,medica tion Not available Not available Not available 01/24/2020 59761 91 RxNorm Avtar daniel, [place] - [place] [...] Address Organization Details Last Updated DateTime 0 12094.3 8 g 24.5 kg/m2 157.48 cm 66 [...] Updated DateTime 0 157.48 cm 24.5 kg/m2 12953.3 8 g 70 /min 98 % 98 % 125 mm[Hg] 68 mm[Hg] Avtar Aragon n [place] [facility] 0 13:58:56 Social History Question Answer Notes LastModified by Organizat ion Details LastModified Time Tobacco Smoking Status Current Every Day Smoker 4-5 ciggs daily Not Available [facility] 03/29/2020 03:16:11 Do You Or Have You Ever Used E-cigarettes Or Vape? Never Used Electronic Cigarettes [id number] Information not available 03/29/2020 Live Alone Or [...] SNOMED-CT Code Diagnosis ICD10 Code Diagnosis Note [id number] Tomasz Vivas MD PAIN OFFICE [address] [place] [address] 01/24/2020 08:49:01 01/26/2020 14:08:18 Degeneration of cervical intervertebral disc 70780630 M50.30 Spinal juan nosis in cervical region 67708628 M48.02 Muscle pain 42400299 M79 .18 Cervical s pondylosis without myelopathy 539419129 M47.812 [id number] Tomasz Vivas MD PAIN OFFICE [address] [place] [address] 01/29/2020 10:51:05 01/29/2020 11:42:32 Degeneration of cervical intervertebral disc 88937285 M50.30 Spinal juan nosis in cervical region 70197146 M48.02 Muscle pain 84117690 M79 .18 Cervical s pondylosis without myelopathy 265111047 M47.812 [id number] Tomasz Vivas MD PAIN OFFICE [address] [place] [address] 02/14/2020 13:44:40 02/14/2020 16:02:22 Degeneration of cervical intervertebral disc 81931451 M50.30 Spinal juan nosis in cervical region 11207522 M48.02 Muscle pain 07674672 M79 .18 Cervical s pondylosis without myelopathy 221023471 M47.812 Health Concerns Section Related Observation LastModified by Organization Detai ls LastModified Time None Recorded Concern Status LastModified by Organization Details LastModified Time None Recorded Advance Directives Directive None Recorded Payers Encounter Date Sequence Insurance Name Policy Number Policy Maza Covered Member ID Maza Member ID Guarantor Name 01/24/2020 1 [facility] [id number] 1 Patrizia Luis [id number] Patrizia Luis 01/29/2020 1 [facility] [id number] 1 Patrizia Luis [id number] Patrizia Luis 02/14/2020 1 [facility] [id number] 1 Patrizia Luis [id number] Patrizia Luis Notes Date Note Type Note [...] inflammation or infection. Tomasz Vivas MD [address], [place], [address], [facility] Pain Management 01/29/2020 09:10:33 01/29/2020 text/html She is here for a right trapezius muscle trigger point injection under ultrasound guidance Tomasz Vivas MD [address] , [address], [place], [address], [facility] Pain Management 01/30/2020 08:27:47 02/14/2020 text/html She is here for a left trapezius muscle trigger point injection under ultrasound guidance Tomasz Vivas MD [address] [facility] , [address], [place], [address], [facility] Pain Management 02/15/2020 09:59:53 OBGyn Episode No OBEpisode recorded.
--- OUTSIDE RECORDS SUMMARY | 2024-07-28 10:34 | XMS_ITS | Clinical Summary ---
Author Organization [facility] 299 [facility] Address [address] [place] [address] Phone Care Team Providers Care Materials Handler Name Role Phone Yogesh Mckeon MD Primary Care Provider [phone] Allergies Active Allergy Reactions Criticality Noted Date Comments Latex 07/07/2024 Medications aspirin 81 mg chewable tablet aspirin 81 MG tablet Take 81 mg by mouth daily Active pen needle, diabetic (BD ULTRA-FINE ORIG PEN NEEDLE MISC) B-D ULTRAFINE III SHORT PEN 31G X 8 MM Misc 8 Active cephalexin (KEFLEX) 500 mg capsule 8 Active cetirizine (ZyrTEC) 10 mg capsule Take 1 Tab by mouth daily. Active cholecalciferol (VITAMIN D-3) 250 mcg (10,000 unit) capsule 8 Active denosumab (Prolia) 60 mg/mL syringe syringe Inject 60 mg into the skin Once. 8 Active ergocalciferol (VITAMIN D-2) 1,250 mcg (50,000 unit) capsule Take 50,000 Units by mouth once a week. Active esomeprazole (NexIUM) [address] capsule Take 40 mg by mouth every morning (before breakfast). Active fluconazole (DIFLUCAN) 150 mg tablet 8 Active insulin glargine (LANTUS) 100 unit/mL injection Inject 10 Units into the skin daily. Active lisinopriL (PRINIVIL,ZESTR IL) 2.5 mg tablet Take 2.5 mg by mouth daily. Active metFORMIN (GLUCOPHAGE) 1,000 mg tablet Take 1,000 mg by mouth 2 times daily (with meals). Active NIFEdipine (ADALAT CC) 30 mg 24 hr tablet Take 30 mg by mouth daily. Active pimecrolimus (ELIDEL) 1 % cream Apply topically 2 times daily. Active prednisoLONE acetate (PRED FORTE) 1 % ophthalmic suspension 8 Active simvastatin (ZOCOR) 40 mg tablet Take 40 mg by mouth at bedtime. Active SITagliptin phosphate (Januvia) 100 mg tablet Take 100 mg by mouth daily. Active triamcinolone (KENALOG) 0.1 % cream Apply topically 2 times daily. Active budesonide DR (ENTOCORT EC) 3 mg 24 hr capsuleIndicati ons:Collagenous colitis Take 3 capsules (9 mg total) by mouth 1 (one) time each day in the morning. 90 each 11 5 07/07/[address] (ENTOCORT EC) 3 mg 24 hr capsuleIndicati ons:Collagenous colitis Take 3 capsules (9 mg total) by mouth 1 (one) time each day in the morning. 90 each 11 5 07/07/19 25 Discontinu ed(Reorder ) Encounters Date Type Department Care Team Description 07/07/2024 8:20 AM EST Office Visit Gastroenterology - [address] [phone] Lottie Martinez NP Collagenous colitis (Primary Dx) 06/29/2024 Telephone Gastroenterology - [address] [phone] Marlon Guzman MD from Last 3 Months Social History Tobacco Use Types Packs/Day Years Used Date Smoking Tobacco: Never Assessed Comments Unknown Sex and Gender Information Value Date Recorded Sex Assigned at Not on file Legal Sex Female 3:24 PM EST Gender Identity Not on file Sexual Orientation Not on file Last Filed Vital Signs [...] Upcoming Encounters Date Type Department Care Team ([facility] st Contact Info) Description 09/01/2024 9:20 AM EDT Office Visit Gastroenterology - 299 [address] 299 [facility] [address] [place] [phone] Lottie Martinez NP [address] [facility] [address] [place] [address] Health Maintenance Due Date Last Done Comments Breast Cancer Screening 1952 Diabetes: Annual GFR (Glomerular Filtration Rate) 1952 Diabetes: Annual Foot Exam 1962 Diabetes: Annual Retina Eye Exam 1962 RSV Immunization Patients 60+ Years Old (1 - Risk 60-74 years 1-dose series) 2012 COVID-19 Vaccine () 02/13/2024 03/19/2022, 04/25/2021, 08/24/2020, Additional history exists Cholesterol [...] or Tdap) 10/16/2024 10/16/2014, 05/11/2007 Pneumococcal Vaccine: 50+ Years Completed 07/20/2019, 03/28/2018, 03/17/2011 Zoster Vaccines [...] patient's age to complete this topic Meningococcal B Vacine Aged Out No lo nger eligible based on patient's age to complete this topic RSV Immunization Patients Under 20 months Aged Out No longer eligible based on patient's age to complete this topic Varicella Vaccines Aged Out No longer eligible based on patient's age to complete this topic Insurance [employer] Care Teams Materials Handler Relationship Specialty Start Date End Date Yogesh Mckeon MD [address] [place] [address] PCP - General Internal Medicine 06/29/24
--- OUTSIDE RECORDS SUMMARY | 2024-07-28 10:34 | XMS_ITS | Encounter Summary ---
Author Organization [facility] Address [address] [place] [address] Care Team Providers Care Road Engineer Name Role Phone Yogesh Mckeon MD Primary Care Provider [phone] Encounter Details Date Type Department Care Team (Late st Contact Info) Description 06/29/2024 Telephone Gastroenterology - 299 [address] [facility] [address] [place] [phone] Marlon Guzman MD [address] [facility] [address] [address] Social History Tobacco Use Types Packs/Day Years [...] - [address] [place] [phone] Lottie Martinez, [place] [address] [place] [phone] documented as of this encounter Visit Diagnoses Not on filedocumented in this encounter Care Teams Road Engineer Relationship Specialty Start Date End Date Yogesh Mckeon MD [address] [address] PCP - General Internal Medicine 06/29/24 documented as of this encounter
== END 2024-07-28 10:28 | disposition home or self-care (01) ==
PROVIDERS: Visit Provider Internal Medicine Rheumatology
DX: M81.0 Age-related osteoporosis without current pathological fracture (principal)

== ENCOUNTER → 2024-07-28 09:57 | Outpatient (BNVA) | payer OTHER, SELFPAY | PROVIDERS: Visit Provider Internal Medicine Rheumatology | DX: M81.0 Age-related osteoporosis without current pathological fracture (principal) | CPT/HCPCS: 96372; J0897 ==

== ENCOUNTER 2024-08-23 09:30 | Outpatient (AMB) | payer OTHER, SELFPAY ==
[2024-08-23 09:50] VITALS: BP 110/62; PULSE 69; O2SAT 97; BMI 26.4
--- NOTE | 2024-08-23 09:50 | MHC.OFFVIS ---
Vital Signs 08/23/24 09:50 Height 4 ft 11.65 in Weight 133 lb 6.075 oz BMI 26.4 BP 110/62 Pulse 69 Pulse Oximetry (%) 97 Oxygen Delivery Method Room Air Intake Visit Reasons: ts Intake Note: Patient presents for osteoporosis Accompanied by: Spouse Allergies No Known Allergies Allergy (Verified 08/23/24 09:50) Physical Exam Vital Signs: Last Vital Signs Pulse 69 08/23/24 09:50 BP 110/62 08/23/24 09:50 Pulse Ox 97 08/23/24 09:50 Oxygen Delivery Method Room Air 08/23/24 09:50 BMI result Body Mass Index 26.4 Assessment & Plan Assessment & Plan (1) Osteoporosis: Comment: On Prolia. She received Prolia 07/2024. Recent labs reveal vitamin-D deficiency. She is on ergocalciferol 08876 IU weekly for 12 week course. Rheumatology history: Diagnosed with osteoporosis with fragility fracture 2007 right ankle (fell down 2 steps on stairs, low-impact fracture). Treated with Prolia for 10 years by PCP per history but unable to locate bone density. Prolia was continued 06/2018. She had a bone density 08/2022, which revealed lowest T-score -2.3 left femoral neck,-2.1 spine, total hip -1.2. 05/20/2020, she had lowest T-score spine-2.2, left femoral neck-2.1 and left total hip-1.1. The last bone density does report worsening of T-score in left femoral neck but improvement in total hip and spine. Bone density 04/2018 lowest T-score -2.4 spine L1-L4,-1.5 left femoral neck,-1.4 total left hip. Code(s): M81.0 - Age-related osteoporosis without current pathological fracture Category: Medical Qualifiers: Osteoporosis type: age-related Presence of current pathological fracture: unspecified Qualified Code(s): M81.0 - Age-related osteoporosis without current pathological fracture Plan: She will receive Prolia subcutaneous injection in office every 6 months. Next injection due in January She will have follow-up and labs 1 week prior to nurse visit for Prolia in January She will continue ergocalciferol 50940 IU weekly for another 2 months. Then she will start calcium and vitamin-D supplement that I prescribed today She is due to have bone density to to check response of Prolia [facility] Return to clinic in January (2) Other senior care (current) drug therapy: Code(s): Z79.899 - Other senior care (current) drug therapy Category: Medical Plan: See above (3) Vitamin D deficiency: Code(s): E55.9 - Vitamin D deficiency, unspecified Category: Medical Plan: On supplement Orders: Orders XR DEXA appendicular skeleton Today M81.0 - Age-related osteoporosis without current pathological fracture XR DEXA axial skeleton Today M81.0 - Age-related osteoporosis without current pathological fracture Medications: New calcium carbonate-vitamin D3 600 mg-25 mcg (1,000 unit) Start after completing ergocalciferol course. 1 cap PO BID 90 days 180 caps 3RF Coding Level of Care Code Est Pt Level 4 (94898) Complex EM visit Add On G2211 Diagnoses Age related osteoporosis, unspecified pathological fracture presence M81.0 Osteoporosis type: age-related Presence of current pathological fracture: unspecified Other intermission coordinator (current) drug therapy Z79.899 Vitamin D deficiency E55.9 Time Spent (min) 25
--- OUTSIDE RECORDS SUMMARY | 2024-08-23 10:24 | XMS_ITS | Clinical Summary ---
Author Organization [facility] 299 [facility] Address [address] [place] [address] Phone Care Team Providers Care Advertising Sales Consultant Name Role Phone Yogesh Mckeon MD Primary Care Provider [phone] Allergies Active Allergy Reactions Criticality Noted Date [...] 90 each 11 5 07/07/19 26 Active Encounters Date Type Department Care Team Description 07/07/2024 8:20 AM EST Office Visit Gastroenterology - [address] [phone] Lottie Martinez, SEYM[place] Collagenous colitis (Primary Dx) 06/29/2024 Telephone Gastroenterology - [address] [place] [phone] Marlon Guzman MD from Last 3 Months [...] Upcoming Encounters Date Type Department Care Team ([facility] Contact Info) Description 09/01/2024 9:20 AM EDT Office Visit Gastroenterology - [address] [phone] Lottie Martinez, [place] [address] [place] [address] Health Maintenance Due Date Last Done Comments [...] [employer] Care Teams Advertising Sales Consultant Relationship Specialty Start Date End Date Yogesh Mckeon MD [address] [place] [address] PCP - General Internal Medicine 06/29/24
--- OUTSIDE RECORDS SUMMARY | 2024-08-23 10:24 | XMS_ITS | Data Portability ---
Author Organization [facility] Pain Managem ent, PAIN OFFICE Address [address] [facility] [address] [place] [address] Care Team Providers Care Veterinary Toxicologist Name Role Phone YANNA JACINTO Primary Care [...] Address Organization Details Recorded Time Muscle pain 26170000 Active Tomasz george MD [address] , [address], [place], [address], [place] [facility] 0 09:53:18 Degeneration of cervical intervertebral disc 07473270 Active Tomasz george MD [address] , [address], [place], [address], [place] [facility] 0 09:53:45 Spinal stenosis in cervical region 05568288 Active Tomasz george MD [address] , [address], [place], [address], [place] [facility] 0 09:54:00 Cervical spondylosis without myelopathy 210534261 Active Tomasz george MD [address] , [address], [place], [address], [place] [facility] 0 09:54:16 Problem Notes None recorded. Procedures Surgical History Date Name Laterality Status Provider Name and Address Organization Details Recorded Time 0 Trigger Point Injections under ultrasound guidance completed Tomasz Vivas MD [address] , [address], [place], [address], [place] [facility] 02/14/2020 14:49:01 0 Trigger Point Injections under ultrasound guidance completed Tomasz Vivas MD [address] , [address], [place], [address], [place] [facility] 01/29/2020 11:29:49 Imaging Results None recorded. Procedure Notes None recorded. Medical Equipment None Reported. Allergies Allergen ID Allergen Name Allergen Category Reaction Reaction Severity Criticality Documentation Date Start Date Code Code System Note Provider Name and Address Organization Details Recorded Time 31254 latex environme nt,medica tion Not available Not available Not available 01/24/2020 61891 91 RxNorm Avtar daniel, [place] - [place] [...] completed Not Available Not Available Not Available Narinderaglkerri OlivaZev U-100 Insulin 100 unit/mL (3 mL) subcutaneou s active Not Available Not Available Not Available Vitals Date Recorded Body weight Body mass index (BMI) Body height Heart rate Oxygen saturation Oxygen saturation in Arterial blood by Pulse oximetry Pain severity - 0-10 verbal numeric rating [Score] - Reported Systolic blood pressure Diastolic blood pressure Provider Name and Address Organization Details Last Updated DateTime 0 38529.3 8 g 24.5 kg/m2 157.48 cm 66 /min 99 % 99 % 6 173 mm[Hg] 74 mm[Hg] Avtar george [place] [...] Updated DateTime 0 157.48 cm 24.5 kg/m2 17184.3 8 g 70 /min 98 % 98 % 125 mm[Hg] 68 mm[Hg] Avtar george [place] [facility] 0 13:58:56 Social History Question Answer Notes LastModified by Organizat ion Details LastModified Time Tobacco Smoking Status Current Every Day Smoker 4-5 ciggs daily Not Available [facility] 03/29/2020 03:16:11 Do You Or Have You Ever Used E-cigarettes Or Vape? Never Used Electronic Cigarettes [id number] Information not available 03/29/2020 Live Alone Or With Others? With Others [email or web address] Information not available 01/24/2020 Marital Status [email or web address] Information not available 01/24/2020 Sex: Unknown Functional [...] SNOMED-CT Code Diagnosis ICD10 Code Diagnosis Note [id number] Tomasz Vivas MD PAIN OFFICE [address] [place] [address] 01/24/2020 08:49:01 01/26/2020 14:08:18 Degeneration of cervical intervertebral disc 42285631 M50.30 Spinal juan nosis in cervical region 45765878 M48.02 Muscle pain 40478566 M79 .18 Cervical s pondylosis without myelopathy 057502750 M47.812 51733 Tomasz Vivas MD PAIN OFFICE [address] [place] [address] 01/29/2020 10:51:05 01/29/2020 11:42:32 Degeneration of cervical intervertebral disc 54400492 M50.30 Spinal juan nosis in cervical region 01728632 M48.02 Muscle pain 36719360 M79 .18 Cervical s pondylosis without myelopathy 227517225 M47.812 79684 Tomasz Vivas MD PAIN OFFICE [address] [employer] [place] [address] 02/14/2020 13:44:40 02/14/2020 16:02:22 Degeneration of cervical intervertebral disc 00438045 M50.30 Spinal juan nosis in cervical region 38194741 M48.02 Muscle pain 81214288 M79 .18 Cervical s pondylosis without myelopathy 237268850 M47.812 Health Concerns Section Related Observation LastModified by Organization Detai ls LastModified Time None Recorded Concern Status LastModified by Organization Details LastModified Time None Recorded Advance Directives Directive None Recorded Payers Encounter Date Sequence Insurance Name Policy Number Policy Maza Covered Member ID Maza Member ID Guarantor Name 01/24/[address] [facility] [id number] 1 Patrizia Luis [id number] Patrizia Luis 01/29/[address] [facility] [id number] 1 Patrizia Luis [id number] Patrizia Luis 02/14/[address] [facility] [id number] 1 Patrizia Luis [id number] Patrizia Luis Notes Date Note Type Note [...] inflammation or infection. Tomasz Vivas MD [address] , [address], [place], [address], [facility] 01/29/2020 09:10:33 01/29/2020 text/html She is here for a right trapezius muscle trigger point injection under ultrasound guidance Tomasz Vivas MD [address] [facility] , [address], [place], [address], [facility] 01/30/2020 08:27:47 02/14/2020 text/html She is here for a left trapezius muscle trigger point injection under ultrasound guidance Tomasz Vivas MD [address] [facility] , [address], [place], [address], [facility] 02/15/2020 09:59:53 OBGyn Episode No OBEpisode recorded.
== END 2024-08-23 10:38 | disposition home or self-care (01) ==
LOC: HO.RHES 09:31
PROVIDERS: Visit Provider Internal Medicine Rheumatology
DX: M81.0 Age-related osteoporosis without current pathological fracture (principal); Z79.899 Other long term (current) drug therapy; E55.9 Vitamin D deficiency, unspecified
CPT/HCPCS: 99214

== ENCOUNTER 2024-09-15 10:24 | Outpatient (REF) | payer MEDICARE, SELFPAY ==
--- NOTE | ~2024-09-15 | MM_ITS ---
EXAMINATION: DXA BONE DENSITY AXIAL HISTORY: Estrogen deficiency TECHNIQUE: [employer] Dual energy absorptiometry (DEXA) of the lumbar spine, total left hip, and femoral neck was performed. COMPARISON: There are no prior studies for comparison. FINDINGS: The bone mineral density of the lumbar spine is 0.946 with a T-score of -2.0, and a Z-score of -0.1. This is indicative of osteopenia. The bone mineral density of the left total hip is 0.770 with a T-score of -1.9, and a Z-score of -0.2. This is indicative of osteopenia. The bone mineral density of the left femoral neck is 0.743 with a T-score of -2.1, and a Z-score of -0.2. This is indicative of osteopenia. FRACTURE RISK: The FRAX index suggests a risk of major osteoporotic fracture of 12.8%, and of hip fracture 4.3%. MM/XR DEXA axial skeleton IMPRESSION: Based on bone mineral density, and according to World Health Organization (WHO) criteria, the diagnosis is consistent with osteopenia. All bone density values are in grams per centimeter squared (g/cm2). Statistically, 68% of repeat scans fall within 1 SD (+/- 0.010 g/cm2 for AP spine L1-L4) and 1 SD (+/- 0.012 g/cm2 for femur total) FRAX is a trademark of the [employer]'s [place] for Metabolic Bone Disease, a World Health Organization (WHO) Collaborating Center. Electronically signed by: Justin Pa MD 09/15/2024 11:21 AM EDT
--- OUTSIDE RECORDS SUMMARY | 2024-09-15 11:49 | XMS_ITS | Clinical Summary ---
Author Organization [facility] 299 [facility] Address [address] [place] [address] Phone Care Team Providers Care Machine Operators Name Role Phone Yogesh Mckeon MD Primary Care Provider [phone] Allergies Active Allergy Reactions Criticality Noted Date Comments Latex 07/07/2024 Medications aspirin 81 mg chewable tablet aspirin 81 MG tablet Take 81 mg by mouth daily Active pen needle, diabetic (BD ULTRA-FINE ORIG PEN NEEDLE MIS) B-D ULTRAFINE III SHORT PEN 31G X 8 [facility] Active cephalexin (KEFLEX) 500 mg capsule [...] Encounters Date Type Department Care Team Description 09/01/2024 9:20 AM EDT Office Visit Gastroenterology - [address] [place] [phone] Lottie Martinez NP Collagenous colitis (Primary Dx) 07/07/2024 8:20 AM EST Office Visit Gastroenterology - [address] [place] [phone] Lottie Martinez NP Collagenous colitis (Primary Dx) 06/29/2024 Telephone Gastroenterology - [address] [place] [phone] Marlon Guzman MD from Last 3 Months [...] - Inhaled Oxygen Concentration - - Weight 60.3 kg (133 lb) 09/01/2024 9:13 AM EDT Height 149.9 cm (4' 11 ) 09/01/2024 9:13 AM EDT Body Mass Index 26.86 09/01/2024 9:13 AM EDT Plan of Treatment Health Maintenance Due Date Last Done Comments Breast Cancer Screening 1952 Diabetes: Annual GFR (Glomerular Filtration Rate) 1952 Diabetes: Annual Foot Exam 1962 Diabetes: Annual Retina Eye Exam 1962 RSV Immunization Adult Patients (1 - Risk 60-74 years 1-dose series) 2012 COVID-19 Vaccine ( season) 2024 03/19/2022, 04/25/2021, 08/24/2020, Additional history exists Cholesterol Screening (Lipid Panel) 06/30/2024 Depression Screening 06/30/2024 Falls Risk Assessment 06/30/2024 Hepatitis C Screening 06/30/2024 Medicare Annual Wellness Visit 06/30/2024 Osteoporosis Screening (Bone Density Screening) 06/30/2024 Social Influencers of Health Screening 06/30/2024 Diabetes: Annual Urine Albumin-Creatinine Ratio (uACR) 07/08/2024 Diabetes: Blood Sugar Control Test (HGBA1C) 07/08/2024 Hypertension/CHF/CAD Annual BMP Blood Test 07/08/2024 DTaP,Tdap,and Td Vaccines (3 - Td or Tdap) 10/16/2024 10/16/2014, 05/11/2007 Colorectal Cancer Screening: Colonoscopy 09/01/2034 09/01/2024 Pneumococcal Vaccine: 50+ Years Completed 07/20/2019, 03/28/2018, [...] on patient's age to complete this topic Procedures Procedure Name Priority Date/Time Associated Diagnosis Comments EXTERNAL COLONOSCOPY REPORT Routine 09/01/2024 11:33 AM EDT from Last 3 Months Results * External Colonoscopy Report (09/01/2024 11:33 AM EDT) Anatomical Region Laterality Modality Endoscopy us Historical Provider GI~PROCEDURE ORDERABLES F inal Result from Last 3 Months Insurance [employer] Care Teams Machine Operators Relationship Specialty Start Date End Date Yogesh Mckeon MD [address] [place] [address] PCP - General Internal Medicine 06/29/24
--- OUTSIDE RECORDS SUMMARY | 2024-09-15 11:49 | XMS_ITS | Data Portability ---
Author Organization [facility] Pain Managem ent, PAIN OFFICE Address [address] [facility] [address] [place] [address] Care Team Providers Care Full Stack Engineer Name Role Phone YANNA JACINTO Primary Care [...] Address Organization Details Recorded Time Muscle pain 47352428 Active Tomasz george MD [address] , [address], [facility] [place], [address], [place] [facility] 0 09:53:18 Degeneration of cervical intervertebral disc 35561741 Active Tomasz george MD [address] , [address], [place], [address], [place] [facility] 0 09:53:45 Spinal stenosis in cervical region 94842495 Active Tomasz george MD [address] , [address], [place], [address], [place] [facility] 0 09:54:00 Cervical spondylosis without myelopathy 213188498 Active Tomasz george MD [address] , [address], [place], [address], [place] [facility] 0 09:54:16 Problem Notes None recorded. Procedures Surgical History Date Name Laterality Status Provider Name and Address Organization Details Recorded Time 0 Trigger Point Injections under ultrasound guidance completed Tomasz Vivas MD [address] , [address], [place], [address], [place] [facility] 02/14/2020 14:49:01 0 Trigger Point Injections under ultrasound guidance completed Tomasz Vivas MD [address] , [address], [place], [address], [place] [facility] 01/29/2020 11:29:49 Imaging Results None recorded. Procedure Notes None recorded. Medical Equipment None Reported. Allergies Allergen ID Allergen Name Allergen Category Reaction Reaction Severity Criticality Documentation Date Start Date Code Code System Note Provider Name and Address Organization Details Recorded Time 11544 latex environme nt,medica tion Not available Not available Not available 01/24/2020 45945 91 RxNorm Avtar daniel, [place] - [place] [...] Address Organization Details Last Updated DateTime 0 44210.3 8 g 24.5 kg/m2 157.48 cm 66 [...] Updated DateTime 0 157.48 cm 24.5 kg/m2 73786.3 8 g 70 /min 98 % 98 % 125 mm[Hg] 68 mm[Hg] Avtar george [place] [facility] 0 13:58:56 Social History Question Answer Notes LastModified by Organizat ion Details LastModified Time Tobacco Smoking Status Current Every Day Smoker 4-5 ciggs daily Not Available [facility] 03/29/2020 03:16:11 Do You Or Have You Ever Used E-cigarettes Or Vape? Never Used Electronic Cigarettes [id number] Information not available 03/29/2020 Live Alone Or [...] SNOMED-CT Code Diagnosis ICD10 Code Diagnosis Note 11866 Tomasz Vivas MD PAIN OFFICE [address] [place] [address] 01/24/2020 08:49:01 01/26/2020 14:08:18 Degeneration of cervical intervertebral disc 04293583 M50.30 Spinal juan nosis in cervical region 42871395 M48.02 Muscle pain 76041673 M79 .18 Cervical s pondylosis without myelopathy 332462107 M47.812 33338 Tomasz Vivas MD PAIN OFFICE [address] [place] [address] 01/29/2020 10:51:05 01/29/2020 11:42:32 Degeneration of cervical intervertebral disc 49878418 M50.30 Spinal juan nosis in cervical region 12839842 M48.02 Muscle pain 71561001 M79 .18 Cervical s pondylosis without myelopathy 519392973 M47.812 60227 Tomasz Vivas MD PAIN OFFICE [address] [place] [address] 02/14/2020 13:44:40 02/14/2020 16:02:22 Degeneration of cervical intervertebral disc 50868560 M50.30 Spinal juan nosis in cervical region 78364145 M48.02 Muscle pain 34351842 M79 .18 Cervical s pondylosis without myelopathy 998393603 M47.812 Health Concerns Section Related Observation LastModified by Organization Detai ls LastModified Time None Recorded Concern Status LastModified by Organization Details LastModified Time None Recorded Advance Directives Directive None Recorded Payers Encounter Date Sequence Insurance Name Policy Number Policy Maza Covered Member ID Maza Member ID Guarantor Name 01/24/2020 1 [facility] [id number] 1 Patrizia Luis [id number] Patrizia Luis 01/29/2020 1 [facility] [id number] 1 Patrizia Luis [id number] Patrizia Luis 02/14/2020 1 [facility] [id number] 1 Patrizia Luis [id number] Patrizia Luis Notes Date Note Type Note [...] inflammation or infection. Tomasz Vivas MD [address] , [address], [place], [address], [facility] 01/29/2020 09:10:33 01/29/2020 text/html She is here for a right trapezius muscle trigger point injection under ultrasound guidance Tomasz Vivas MD [address] [facility] , [address], [place], [address], [facility] 01/30/2020 08:27:47 02/14/2020 text/html She is here for a left trapezius muscle trigger point injection under ultrasound guidance Toamsz Vivas MD [address] [facility] , [address], [place], [address], [facility] 02/15/2020 09:59:53 OBGyn Episode No OBEpisode recorded.
== END 2024-09-15 10:25 | disposition home or self-care (01) ==
LOC: HO.MAMMO 10:24
PROVIDERS: Visit Provider Internal Medicine Rheumatology
DX: M81.0 Age-related osteoporosis without current pathological fracture (principal)
CPT/HCPCS: 77080

== ENCOUNTER → 2024-09-15 11:30 | Outpatient (BNV) | payer MEDICARE, SELFPAY | PROVIDERS: Visit Provider Radiology Diagnostic Radiology | DX: E28.39 Other primary ovarian failure (principal) | CPT/HCPCS: 77080 ==

== ENCOUNTER 2024-11-28 10:01 | Outpatient (AMB) | payer MEDICARE, SELFPAY ==
[2024-11-28 10:25] VITALS: BP 100/70; PULSE 68; O2SAT 98; BMI 25.9
--- NOTE | 2024-11-28 10:25 | A.OFFVIS_ITS ---
Vital Signs 11/28/24 10:25 Height 4 ft 11 in Weight 128 lb BMI 25.9 BP 100/70 Blood Pressure Location Rt brachial Position Sitting Pulse 68 Pulse Source Pulse Oximeter Pulse Oximetry (%) 98 Oxygen Delivery Method Room Air Intake Visit Reasons: 3 Months Intake Note: Patient presents for osteoporosis Accompanied by: Self / Same As Patient Allergies No Known Allergies Allergy (Verified 11/28/24 10:25) HPI HPI 3 Months: Details: She feels well. She completed vitamin-D supplement. Physical Exam Vital Signs: Last Vital Signs Pulse 68 11/28/24 10:25 BP 100/70 11/28/24 10:25 Pulse Ox 98 11/28/24 10:25 Oxygen Delivery Method Room Air 11/28/24 10:25 BMI result Body Mass Index 25.9 Const Other: General: Comfortable, responsive and alert. Skin: No lesions seen MSK: No synovitis. Kyphoscoliosis present. Ambulates without assistance. Slow ambulation. Assessment & Plan Assessment & Plan (1) Osteoporosis: Comment: On Prolia. She received Prolia 07/2024. She completed 12 week course of ergo calciferol 65067 IU weekly due to vitamin-D deficiency. Bone densities reviewed with patient and her . She recently had a bone density September 2024, which reveals slight improvement in lumbar spine bone density compared to bone density from 2022 (-2.0 from -2.1 in 2022) with improvement in T-score of left femoral neck (-2.1 from -2.3) and increase of T- score in left total hip (-1.9 compared to -1.2 in 2022). However, when compared to bone density from 2018 she has had decrease in T-scores of left femoral hip and left total hip. T-score of lumbar spine has increased compared to bone de nsity from 2018. She has had at least 16 years of treatment on Prolia (10 years prior to [facility]-present). She has had treatment failure on Prolia due to worsening of T-score in left femoral hip and left total hip since 2018. We discussed next best step in treatment with Romosuzumab. There is evidence to support the use of romosuzumab in providing improvement in bone density in individuals that have been previously treated with long-term Prolia. Optimal timing of romosuzumab is necessary to prevent rebound bone turnover at 3 months after next Prolia. Patient agrees with plan. PMID: 13040282, PMID: 54463310, PMID: 24913665, PMID: 77271575 Rheumatology history: Diagnosed with osteoporosis with fragility fracture 2007 right ankle (fell down 2 steps on stairs, low-impact fracture) and 2023 (fell down 1 step of stair). Treated with Prolia for 10 years by PCP per history but unable to locate bone density. Prolia was continued 06/2018. She had a bone density 08/2022, which revealed lowest T-score -2.3 left femoral neck,-2.1 spine, total hip -1.2. 05/20/2020, she had lowest T-score spine-2.2, left femoral neck-2.1 and left total hip-1.1. Bone density 04/2018 lowest T- score -2.4 spine L1-L4,-1.5 left femoral neck,-1.4 total left hip. Code(s): M81.0 - Age-related osteoporosis without current pathological fracture Category: Medical Qualifiers: Osteoporosis type: age-related Presence of current pathological fracture: unspecified Qualified Code(s): M81.0 - Age-related osteoporosis without current pathological fracture Plan: She will receive Prolia subcutaneous injection in office every 6 months with nurse visit. Next Prolia due in January. Plan to start Romosuzumab 3 months after next Prolia (April) for optimal timing/best practice. She will have follow-up and labs 1 week prior to nurse visit for Prolia in January Vitamin-D level checked today. Continue calcium and vitamin-D supplement b.i.d. Plan to repeat bone density after 1 year of treatment with Romosuzumab to evaluate benefit on treatment Return to clinic in 3 months (2) Other automation technologist (current) drug therapy: Code(s): Z79.899 - Other skilled nursing (current) drug therapy Category: Medical Plan: See above (3) Vitamin D deficiency: Code(s): E55.9 - Vitamin D deficiency, unspecified Category: Medical Plan: On supplement Checking vitamin-D level today Return to clinic in three-months Orders: Orders Vitamin D 25-OH Total 3 Months E55.9 - Vitamin D deficiency, unspecified, M81.0 - Age-related osteoporosis without current pathological fracture Coding Level of Care Code Est Pt Level 4 (57254) Complex EM visit Add On G2211 Diagnoses Age related osteoporosis, unspecified pathological fracture presence M81.0 Osteoporosis type: age-related Presence of current pathological fracture: unspecified Other automation technologist (current) drug therapy Z79.899 Vitamin D deficiency E55.9
--- OUTSIDE RECORDS SUMMARY | 2024-11-28 11:22 | XMS_ITS | Data Portability ---
Author Organization [facility] Pain Managem ent, PAIN OFFICE Address [address] [facility] [address] [place] [address] Care Team Providers Care Search Marketing Specialist Name Role Phone YNANA JACINTO Primary Care Provider Assessment Encounter Date [...] Address Organization Details Recorded Time Muscle pain 94377910 Active Tomasz george MD [address] , [address], [place], [address], [place] [facility] 0 09:53:18 Degeneration of cervical intervertebral disc 17578880 Active Tomasz george MD [address] , [address], [place], [address], [place] [facility] 0 09:53:45 Spinal stenosis in cervical region 88627278 Active Tomasz george MD [address] , [address], [place], [address], [place] [facility] 0 09:54:00 Cervical spondylosis without myelopathy 019642013 Active Tomasz george MD [address] , [address], [place], [address], [place] [facility] 0 09:54:16 Problem Notes None recorded. Procedures Surgical History Date Name Laterality Status Provider Name and Address Organization Details Recorded Time 0 Trigger Point Injections under ultrasound guidance completed Tomasz Vivas MD [address] , [address], [place], [address], [place] [facility] 02/14/2020 14:49:01 0 Trigger Point Injections under ultrasound guidance completed Tomasz Vivas MD [address] , [address], [place], [address], [place] [facility] 01/29/2020 11:29:49 Imaging Results None recorded. Procedure Notes None recorded. Medical Equipment None Reported. Allergies Allergen ID Allergen Name Allergen Category Reaction Reaction Severity Criticality Documentation Date Start Date Code Code System Note Provider Name and Address Organization Details Recorded Time 06287 latex environme nt,medica tion Not available Not available Not available 01/24/2020 51928 91 RxNorm Avtar daniel, [place] - [place] [...] Address Organization Details Last Updated DateTime 0 68123.3 8 g 24.5 kg/m2 157.48 cm 66 [...] Updated DateTime 0 157.48 cm 24.5 kg/m2 50665.3 8 g 70 /min 98 % 98 % 125 mm[Hg] 68 mm[Hg] Avtar Aragon n [place] [facility] 0 13:58:56 Social History Question Answer Notes LastModified by Organizat ion Details LastModified Time Tobacco Smoking Status Current Every Day Smoker 4-5 ciggs daily Not Available [facility] 03/29/2020 03:16:11 Live Alone Or With Others? With Others Information not available 01/24/2020 Marital Status Information not available 01/24/2020 Sex: Unknown Functional Status Question Answer Note LastModified by Organizat ion Details LastModified Time What is your occupation? retired [id number] Information not available 03/29/2020 Do you or have you ever used e-cigarettes or vape? Never used electronic cigarettes [id number] Information not available 03/29/2020 Mental Status None recorded. Family History Nothing [...] SNOMED-CT Code Diagnosis ICD10 Code Diagnosis Note [id number] Tomasz Vivas MD PAIN OFFICE [address] [place] [address] 01/24/2020 08:49:01 01/26/2020 14:08:18 Degeneration of cervical intervertebral disc 05693150 M50.30 Spinal juan nosis in cervical region 62060104 M48.02 Muscle pain 67985140 M79 .18 Cervical s pondylosis without myelopathy 608229440 M47.812 [id number] Tomasz Vivas MD PAIN OFFICE [address] [place] [address] 01/29/2020 10:51:05 01/29/2020 11:42:32 Degeneration of cervical intervertebral disc 99980476 M50.30 Spinal juan nosis in cervical region 20685419 M48.02 Muscle pain 19409017 M79 .18 Cervical s pondylosis without myelopathy 329171358 M47.812 [id number] Tomasz Vivas MD PAIN OFFICE [address] [facility] [address] [place] [address] 02/14/2020 13:44:40 02/14/2020 16:02:22 Degeneration of cervical intervertebral disc 12465006 M50.30 Spinal juan nosis in cervical region 72766791 M48.02 Muscle pain 40370400 M79 .18 Cervical s pondylosis without myelopathy 205937119 M47.812 Health Concerns Section Related Observation LastModified by Organization Detai ls LastModified Time None Recorded Concern Status LastModified by Organization Details LastModified Time None Recorded Advance Directives Directive None Recorded Payers Insurance Date Sequence Insurance Name Policy Number Policy Maza Covered Member ID Maza Member ID Guarantor Name 03/07/2021 1 [facility] [id number] 1 Patrizia Smith [id number] Patrizia Smith Notes Date Note Type Note [...] inflammation or infection. Tomasz Vivas MD [address] [place] [facility] , [address], [place], [address], [facility] 01/29/2020 09:10:33 01/29/2020 text/html She is here for a right trapezius muscle trigger point injection under ultrasound guidance Tomasz Vivas MD [address] [facility] , [address], [place], [address], [facility] 01/30/2020 08:27:47 02/14/2020 text/html She is here for a left trapezius muscle trigger point injection under ultrasound guidance Tomasz Vivas MD [address] [facility] [facility] , [address], [place], [address], [facility] Pain Management 02/15/2020 09:59:53 OBGyn Episode No OBEpisode recorded.
== END 2024-11-28 11:09 | disposition home or self-care (01) ==
LOC: HO.RHES 10:03
PROVIDERS: Visit Provider Internal Medicine Rheumatology
DX: M81.0 Age-related osteoporosis without current pathological fracture (principal); Z79.899 Other long term (current) drug therapy; E55.9 Vitamin D deficiency, unspecified
CPT/HCPCS: 99214; G2211

== ENCOUNTER → 2024-11-28 10:01 | Outpatient (BNVA) | payer MEDICARE, SELFPAY | PROVIDERS: Visit Provider Internal Medicine Rheumatology | DX: M81.0 Age-related osteoporosis without current pathological fracture (principal); E55.9 Vitamin D deficiency, unspecified; Z79.899 Other long term (current) drug therapy | CPT/HCPCS: 99212 ==

== ENCOUNTER 2025-01-15 10:37 | Outpatient (REF) | payer MEDICARE, SELFPAY ==
--- OUTSIDE RECORDS SUMMARY | 2025-01-15 11:25 | XMS_ITS | Clinical Summary ---
Author Organization [facility] Address [address] [place] [address] Phone Care Team Providers Care Shrub Grower Name Role Phone Yogesh Mckeon MD Primary Care Provider + Allergies No known active allergies Active Problems Problem Noted Date Diagnosed Date Granuloma annulare 09/18/2014 Overview (05/21/2015): Granuloma annulare; neck Dermatitis 09/18/2014 Overview (05/21/2015): Dermatitis; fingers Family History Medical History Relation Comments Melanoma Unspecified Malignant melano ma Relation Status Comments Unspecified Social History Tobacco Use Types Packs/Day Years Used Date Smoking Tobacco: Every Day Comments Unknown Sex and Gender Information Value Date Recorded Sex Assigned at Not on file Legal Sex Female 3:45 PM EST Gender Identity Not on file Sexual Orientation Not on file Plan of Treatment Not on file Medical Devices Not on file Insurance [place] OUT OF STATE PPO [place]UE [place] OUT OF STATE PPO [place] OUT OF STATE PPO [place] OUT OF STATE PPO [place]UE [place] OUT OF STATE PPO [place] OUT OF STATE PPO BLUE [place] OUT OF STATE PPO [place] OUT OF STATE PPO Care Teams Shrub Grower Relationship Specialty Start Date End Date Yogesh Mckeon MD [address] [place] [id number] PCP - General 12/12/13 Additional Source Comments The information contained in this document represents components of the legal health record. It is not the complete legal health record.[facility]
--- OUTSIDE RECORDS SUMMARY | 2025-01-15 11:25 | XMS_ITS | Clinical Summary ---
Author Organization [facility] [address] [facility] Address [address] [place] [address] Phone Care Team Providers Care Crawler Dragline Operator Name Role Phone Yogesh Mckeon MD Primary Care Provider [phone] Allergies Active Allergy Reactions Criticality Noted Date Comments Latex 07/07/2024 Medications aspirin 81 mg chewable tablet aspirin 81 MG tablet Take 81 mg by mouth daily Active pen needle, diabetic (BD ULTRA-FINE ORIG PEN NEEDLE MIS) B-D ULTRAFINE III SHORT PEN 31G X [facility] Active cephalexin (KEFLEX) 500 mg capsule [...] 90 each 11 5 07/07/19 26 Active Social History Tobacco Use Types Packs/Day Years [...] 2024 03/19/2022, 04/25/2021, 08/24/2020, Additional history exists Depression Screening 06/14/2024 Cholesterol Screening (Lipid Panel) 06/30/2024 Falls Risk Assessment 06/30/2024 Hepatitis C Screening 06/30/2024 Medicare Annual Wellness Visit 06/30/2024 Osteoporosis Screening (Bone Density Screening) 06/30/2024 Social Influencers of Health Screening 06/30/2024 Diabetes: Annual Urine Albumin-Creatinine Ratio (uACR) 07/08/2024 Diabetes: Blood Sugar Control Test (HGBA1C) 07/08/2024 Hypertension/CHF/CAD Annual BMP Blood Test 07/08/2024 DTaP,Tdap,and Td Vaccines (3 - Td or Tdap) 10/16/2024 10/16/2014, 05/11/2007 Influenza Vaccine (#1) 2025 , 05/29/2023, 08/12/2022, Additional history exists Colorectal Cancer Screening: Colonoscopy 09/01/2034 09/01/2024 Pneumococcal Vaccine: 50+ Years Completed 07/20/2019, 03/28/2018, 03/17/2011 Zoster Vaccines Completed 07/18/2020, 03/25/2020 HIB Vaccines Aged Out No longer eligi [...] age to complete this topic Meningococcal B Vaccine Aged Out No l onger eligible based on patient's age to complete this topic RSV Immunization Patients Under 20 months Aged Out No longer eligible based on patient's age to complete this topic Varicella Vaccines Aged Out No longer eligible based on patient's age to complete this topic Procedures Procedure Name Priority Date/Time Associated Diagnosis Comments EXTERNAL COLONOSCOPY REPORT Routine 09/01/2024 11:33 AM EDT from Last 3 Months or Most Recently Relevant to Health Maintenance Results * External Colonoscopy Report (09/01/2024 11:33 AM EDT) Anatomical Region Laterality Modality Endoscopy us Historical Provider GI~PROCEDURE ORDERABLES F inal Result from Last 3 Months or Most Recently Relevant to Health Maintenance Insurance [employer] [place] Care Teams Crawler Dragline Operator Relationship Specialty Start Date End Date Yogesh Mckeon MD [address] [place] [id number] PCP - General Internal Medicine 06/29/24
[2025-01-15 13:48] LABS: Albumin Level 4.4 g/dL (3.5-5.0); Calcium 9.4 mg/dL (8.4-10.2); Estimated Glomerular Filt Rate > 60
== END 2025-01-15 10:38 | disposition home or self-care (01) ==
LOC: HO.HKASLDS 10:37
PROVIDERS: Visit Provider Internal Medicine Rheumatology
DX: M81.0 Age-related osteoporosis without current pathological fracture (principal)
CPT/HCPCS: 36415; 82040; 82306; 82310; 82565

== ENCOUNTER 2025-01-23 09:44 | Outpatient (AMB) | payer MEDICARE, SELFPAY ==
--- NOTE | 2025-01-23 10:07 | AM.OFFVISNUR ---
Intake Visit Reasons: Prolia Allergies No Known Allergies Allergy (Verified 11/28/24 10:25) Office Meds Prolia 60 mg/mL subcutaneous syringe Performing Provider: Saad Mac MD Performing Location: [facility] Endocrinology Administered by: Griselda Restrepo RN on 01/23/25 10:07 Dose Route Admin Location Dispensed Lot Number Expiration Date NDC Manager Community 60 mg subcut 1 mL [id number] 08/12/27 19929-331-25 [facility] Total Dispensed Waste 1 mL 0 % Comments: Patient in for injection. Tolerated well. Denies any reactions to previous injections Assessment & Plan Assessment & Plan Orders: Orders AMB Denosumab Injection Practice Supplied Today M81.0 - Age-related osteoporosis without current pathological fracture Coding
--- OUTSIDE RECORDS SUMMARY | 2025-01-23 10:28 | XMS_ITS | Clinical Summary ---
Author Organization [facility] [address] [facility] Address [address] [place] [address] Phone Care Team Providers Care Itinerant Teacher Assistant Name Role Phone Yogesh Mckeon MD Primary Care Provider [phone] Allergies Active Allergy Reactions Criticality Noted Date Comments Latex 07/07/2024 Medications aspirin 81 mg chewable tablet aspirin 81 MG tablet Take 81 mg by mouth daily Active pen needle, diabetic (BD ULTRA-FINE ORIG PEN NEEDLE MIS) B-D ULTRAFINE III SHORT PEN 31G X 8 MM [facility] 8 Active cephalexin (KEFLEX) 500 mg capsule [...] [employer] [place] [employer] Care Teams Itinerant Teacher Assistant Relationship Specialty Start Date End Date Yogesh Mckeon MD [address] [place] [id number] PCP - General Internal Medicine 06/29/24
--- OUTSIDE RECORDS SUMMARY | 2025-01-23 10:28 | XMS_ITS | Clinical Summary ---
Author Organization [facility] Address [address] [facility] [address] [place] [phone] Phone Care Team Providers Care Synthetic Cloth Binding Cutter Name Role Phone Yogesh Mckeon MD Primary [...] Medical Devices Not on file Insurance [employer] [place] OUT OF STATE PPO [place]UE [place] OUT OF STATE PPO BLUE [place] OUT OF STATE PPO [place] OUT OF STATE PPO [place] OUT OF STATE PPO [place] OUT OF STATE PPO [place] OUT OF STATE PPO [place] OUT OF STATE PPO Care Teams Synthetic Cloth Binding Cutter Relationship Specialty Start Date End Date Yogesh Mckeon MD [address] [place] [id number] PCP - General 12/12/13 Additional Source Comments The information contained in this document represents components of the legal health record. It is not the complete legal health record.[facility]
== END 2025-01-23 10:09 | disposition home or self-care (01) ==
DX: M81.0 Age-related osteoporosis without current pathological fracture (principal)

== ENCOUNTER → 2025-01-23 09:44 | Outpatient (BNVA) | payer MEDICARE, SELFPAY | DX: M81.0 Age-related osteoporosis without current pathological fracture (principal) | CPT/HCPCS: 96372; J0897 ==